=== PATIENT | female | born 1940 | race Caucasian/White ===

== ENCOUNTER 2017-11-30 07:12 | Day surgery (SDC) | payer OTHER, MEDICARE ==
--- OUTSIDE RECORDS SUMMARY | 2017-11-30 07:17 | XMS REPORT | Continuity of Care Document ---
:1940 Author Organization Interface Problems Problem Status Onset Classification Date Comments Source Date Reported Z12.31 - ENCNTR Active 08/25/19 [facility] SCREEN MAMMOGRAM 18 [place] FOR [place] DIABETIC Active 08/16/19 Condition 08/15/2014 Medical RETINOPATHY, 15 Group BACKGROUND Diabetic Resolved 08/16/19 Problem 11/24/2017 Data Medical retinopathy<sup>6 15 migrated Group </sup> from GE [employer] on 12/06/14. 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 Diabetic Active 02/15/20 Problem 11/24/2017 Data Medical peripheral 14 migrated Group neuropathy<sup>4< from GE /sup> Centricity on 10/28/14. Diabetic Resolved 02/15/20 Problem 11/24/2017 Data Medical polyneuropathy<wiggins 14 migrated Group p>5</sup> from GE [employer] on 10/28/14. 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 Tear film Resolved 08/21/19 Problem 11/24/2017 Data Medical insufficiency<sup 13 migrated Group >11</sup> from GE [employer] on 10/28/14. LONG-TERM USE OF Active 01/08/20 Condition 08/15/2014 Medical OTHER MEDICATIONS 12 Group HYPERTENSION, Inactive 01/08/20 Condition 08/15/2014 Medical WHITE COAT 12 Group OBESITY Active 01/08/20 Condition 08/15/2014 Medical 12 Group Long-term drug Resolved 01/08/20 Problem 11/24/2017 Data Medical therapy<sup>9</wiggins 12 migrated Group p> from GE [employer] on 10/28/14. Obesity<sup>10</s Resolved 01/08/20 Problem 11/24/2017 Data Medical up> 12 migrated Group from GE [employer] on 10/28/14. DM Active Condition 08/15/2014 Medical Group HTN Active Condition 08/15/2014 Medical Group HYPERLIPIDEMIA Active Condition 08/15/2014 Medical Group VITAMIN D Active Condition 08/15/2014 Medical DEFICIENCY Group ANEMIA Inactive Condition 08/15/2014 Medical Group DIABETES - DM Inactive Condition 08/15/2014 Medical Group COLON CANCER Active Condition 08/15/2014 Medical Group Benign Active Problem 11/24/2017 Data Medical hypertension<sup> migrated Group 1</sup> from GE [employer] on 10/28/14. Low serum HDL Active Problem 11/24/2017 Medical Group Hyperlipidemia<wiggins Resolved Problem 11/24/2017 Data Medical p>8</sup> migrated Group from GE [employer] on 10/28/14. Mixed Active Problem 11/24/2017 Medical hyperlipidemia Group Vitamin D Resolved Problem 11/24/2017 Data Medical deficiency<sup>12 migrated Group </sup> from GE [employer]ity on 10/28/14. Medications Medication Details Route Status Patient Ordering Order Source Instructions Provider Date simvastatin 40
40 mg=1 Active MH mg oral tablet tab, PO, 018 Medical Bedtime, Group replaces 80 mg, # 90 tab, 1 Refill(s), Pharmacy: [facility] quinapril 40 mg
40 mg=1 Active oral tablet tab, PO, 018 Medical Daily, # 90 Group tab, 1 Refill(s), Pharmacy: [facility] Metoprolol
See Active Succinate ER 50 Instructions 018 Medical mg oral tablet, , TAKE 1 Group extended release TABLET EVERY DAY, # 90 tab, 1 Refill(s), Pharmacy: [facility] Metformin
1,000 Active MH hydrochloride mg=2 tab, 018 Medical 500 MG Oral PO, BID, # Group Tablet 360 tab, 1 Refill(s), Pharmacy: [facility] Furosemide 20 MG
20 mg=1 Active Oral Tablet tab, PO, 018 Medical Daily, # 90 Group tab, 1 Refill(s), Pharmacy: [facility] Delivery doxazosin 8 mg
See Active oral tablet Instructions 018 Medical , TAKE 1 Group TABLET EVERY DAY AT BEDTIME, # 90 tab, 1 Refill(s), Pharmacy: [facility] diclofenac
75 mg=1 Active sodium 75 mg tab, PO, 018 Medical oral enteric BID, 0 Group coated, Refill(s) delayed-release tablet VITAMIN D 2000 1 daily Active UNIT CAPS 014 Medical Group METFORMIN HCL Take 2 Active MH 500 MG TABS tablets by 013 Medical mouth every Group AM & 1 tablet by mouth every PM DOXAZOSIN 1 daily HS Active MH MESYLATE 8 MG 013 Medical TABS Group METFORMIN HCL Take 2 Active MH 500 MG TABS tablets by 013 Medical mouth every Group AM & 1 tablet by mouth every PM DOXAZOSIN 1 daily HS Active MH MESYLATE 8 MG 013 Medical TABS Group METFORMIN HCL Take 2 Active MH 500 MG TABS tablets by 013 Medical mouth every Group AM & 1 tablet by mouth every PM DOXAZOSIN 1 daily HS Active MH MESYLATE 8 MG 013 Medical TABS Group FUROSEMIDE 20 MG 1 daily Active TABS 013 Medical Group MULTIVITAMIN 1 gummie Active MH GUMMIES ADULT daily 013 Medical CHEW Group FISH OIL 1200 MG 1 po daily Active CAPS 013 Medical Group QUINAPRIL HCL 20 1 PO daily Active MH MG TABS 013 Medical Group METOPROLOL 1 PO daily Active MH SUCCINATE 50 MG 013 Medical [id number] Group SIMVASTATIN 80 1 PO daily Active MH MG TABS 013 Medical Group ASPIRIN LOW DOSE 1 PO Daily Active MH 81 MG TABS 013 Medical Group PRESERVISION 2 PO daily Active AREDS CAPS 013 Medical Group RESTASIS 0.05 % use prn Active EMUL 013 Medical Group FUROSEMIDE 20 MG 1 daily Active TABS 013 Medical Group METOPROLOL 1 PO daily Active MH SUCCINATE 50 MG 013 Medical [id number] Group SIMVASTATIN 80 1 PO daily Active MH MG TABS 013 Medical Group RESTASIS 0.05 % use prn Active EMUL 013 Medical Group FUROSEMIDE 20 MG 1 daily Active TABS 013 Medical Group METOPROLOL 1 PO daily Active MH SUCCINATE 50 MG 013 Medical [id number] Group SIMVASTATIN 80 1 PO daily Active MH MG TABS 013 Medical Group MEDROL DOSE PACK use as No Longer 6 DAY dirrected Active 012 Medical Group VITAMIN D3 1000 1 PO daily No Longer MH UNIT TABS Active 012 Medical Group Allergies, Adverse Reactions, Alerts Substance Category Reaction Severity Reaction Status Date Comments Source type Reported CARVEDILOL Drug CARVEDILOL MH allergy Medical Group carvedilol< Assertion Drug Active Data MH sup>1</sup> allergy migrated [facility]. Originally documented as CARVEDILOL. dry mouth Immunizations Immunization Date Site Status Last Comments Source Given Updated influenza virus Right completed [facility] Result Comment: Medical vaccine, 7 Deltoid NO ADVERSE Group inactivated<sup> REACTION 1</sup> pneumococcal Left completed Cain Result Comment: Medical 13-valent 7 Deltoid NO ADVERSE Group vaccine<sup>3</s REACTION up> tetanus-diphther Left completed Cain Result Comment: Medical ia 7 Deltoid NO ADVERSE Group toxoids<sup>4</s REACTION up> influenza completed Medical immunization 3 Group (Flu Vax) has been administered Hx influenza completed GE Result Comment: Medical vaccine-unspecif 3 done. Migrated Group ied<sup>6</sup> from OBS ; Data migrated from [employer] on 07/03/2015.[07/30 Uncharted] Duplicate influenza virus completed GE Result Comment: Medical vaccine, 3 fluzone Group inactivated<sup> preservative 2</sup> free (>3 yrs.) [[id number]]. Migrated from OBS ; Data migrated from [employer] on 07/03/2015. pneumococcal completed Medical immunization 3 Group administered pneumococcal Right completed GE Result Comment: Medical 23-valent 3 Deltoid pneumovax-23. Group vaccine<sup>7</s Migrated from up> OBS VIS: 12-27-96 given August 20, 2012. ; Data migrated from [employer] on 07/03/2015. influenza completed Medical immunization 2 Group (Flu Vax) has been administered influenza completed Medical immunization 1 Group (Flu Vax) has been administered influenza completed Medical immunization 0 Group (Flu Vax) has been administered dT (Diphtheria completed Medical and Tetanus) 4 Group booster given pneumococcal completed Medical immunization 4 Group administered dT (Diphtheria completed Medical and Tetanus) 4 Group immunization for children, #1 tetanus-diphther completed GE Result Comment: Medical ia 4 td. Migrated Group toxoids<sup>5</s from OBS ; up> Data migrated from [employer] on 07/03/2015. Results Order Name Results Value Reference Date Interpretation Comments Source Range Breast Breast Mammo 08/26 - [facility] Mammo Scrn Scrn DEVAN /2018 - [place] DEVAN incl incl CAD MA CAD MA Read by: Emilie White MD Dictated Date/time: 08/31/17 12:38 BILATERAL DIGITAL SCREENING MAMMOGRAM WITH CAD: 08/26/2017 Electronically Signed by: Emilie White MD 08/31/17 12 :38 FINAL REPORT CLINICAL: /Screening. Current study was evaluated with a Computer Aided Detection (CAD) system. COMPARISON:Comparison is made to exam dated: 11/16/2006 mammogram - [facility]. And additional exams from [facility] with the most recent dated 11/28/2014. TECHNIQUE: Mammographic views were obtained using digital acquisition. Current study was also evaluated with a Computer Aided Detection (CAD) system. FINDINGS: The tissue of both breasts is heterogeneously dense, which could obscure detection of small masses. There is a stable benign focal asymmetry in both breasts. There also are stable benign vascular calcifications and calcifications in both breasts. Additionally, there are biopsy clips in the left breast. No significant masses, calcifications, or other findings are seen in either breast. There has been no significant interval change. IMPRESSION: BENIGN RECOMMENDATION:There is no mammographic evidence of malignancy. A 1 year screening mammogram is recommended.(08/27/2018) This exam was interpreted at [id number] for [facility]. Emilie White M.D. sg/penrad:08/31/2017 12:38:41 Clay Thrower(s): Ly Gonzalez, [facility] letter sent: BI-RADS 1/2 Dense Mammogram BI-RADS: 2 Benign Chemistry SODIUM 140 mmol/L 136 - 142 08/15 Medical Group Chemistry POTASSIUM 3.7 mmol/L 3.3 - 5.0 08/15 Medical Group Chemistry BUN 15 mg/dL 8 - 20 08/15 Medical Group Chemistry CREATININE 0.70 mg/dL 0.46 - 08/15 MH 1. Medical Group Chemistry CALCIUM 9.0 mg/dL 8.8 - 10.0 08/15 Medical Group Chemistry CHOLESTEROL 156 mg/dl 120 - 200 08/15 Medical Group Chemistry HDL 48 mg/dl 31 - 79 08/15 Medical Group Chemistry LDL 57 mg/dl 0 - 130 08/15 Medical Group Chemistry SGPT (ALT) 15 U/L 11 - 43 08/15 Medical Group Chemistry SGOT (AST) 16 U/L 10 - 42 08/15 Medical Group Chemistry HGBA1C 6.9 % 3.0 - 6.0 08/15 Medical Group Chemistry SODIUM 143 mmol/L 136 - 142 02/14 Medical Group Chemistry POTASSIUM 4.1 mmol/L 3.3 - 5.0 02/14 Medical Group Chemistry BUN 16 mg/dL 8 - 20 02/14 Medical Group Chemistry CREATININE 0.78 mg/dL 0.46 - 02/14 1. Medical Group Chemistry CALCIUM 9.6 mg/dL 8.8 - 10.0 02/14 Medical Group Chemistry CHOLESTEROL 152 mg/dl 120 - 200 02/14 Medical Group Chemistry HDL 48 mg/dl 31 - 79 02/14 Medical Group Chemistry LDL 65 mg/dl 0 - 130 02/14 Medical Group Chemistry SGPT (ALT) 23 U/L 11 - 43 02/14 Medical Group Chemistry SGOT (AST) 25 U/L 10 - 42 02/14 Medical Group Chemistry MAGNESIUM 2.1 mg/dL 1.9 - 2.5 02/14 Medical Group Chemistry TSH 1.49 0.34 - 02/14 uIU/mL 5.60 Medical Group Chemistry SODIUM 141 mmol/L 136 - 142 08/24 Medical Group Chemistry POTASSIUM 3.7 mmol/L 3.3 - 5.0 08/24 Medical Group Chemistry ALBUMIN 4.1 g/dL 3.5 - 5.0 08/24 Medical Group Chemistry CALCIUM 9.2 mg/dL 8.8 - 10.0 08/24 Medical Group Chemistry CREATININE 0.74 mg/dL 0.46 - 08/24 1. Medical Group Chemistry BUN 12 mg/dL 8 - 08/24 Medical Group Chemistry ALK PHOS 44 U/L 26 - 102 08/24 Medical Group Chemistry SGOT (AST) 21 U/L 10 - 42 08/24 Medical Group Chemistry SGPT (ALT) 22 U/L 11 - 43 08/24 Medical Group Chemistry CHOLESTEROL 152 mg/dl 120 - 200 08/24 Medical Group Chemistry HDL 46 mg/dl 31 - 79 08/24 Medical Group Chemistry HGBA1C 6.4 % 3.0 - 6.0 08/24 Medical Group Hematology HGB 12.3 g/dL 12.0 - 08/24 15.0 Medical Group Hematology HCT 36.1 % 35.0 - 08/24 43.8 /2013 Medical Group Chemistry CHOLESTEROL 166 mg/dl 02/21 Medical Group Chemistry TRIGLYCERIDE 199 mg/dl 02/21 Medical Group Chemistry HDL 53 mg/dl 02/21 Medical Group Chemistry LDL 73 mg/dl 02/21 Medical Group Chemistry TSH 1.41 02/21 uIU/mL Medical Group Chemistry CHOLESTEROL 166 mg/dl 02/21 Medical Group Chemistry TRIGLYCERIDE 199 mg/dl 02/21 Medical Group Chemistry CHOLESTEROL 157 mg/dl 08/20 Medical Group Chemistry TRIGLYCERIDE 207 mg/dl 08/20 Medical Group Chemistry HDL 44 mg/dl 08/20 Medical Group Chemistry LDL 72 mg/dl 08/20 Medical Group Chemistry HGBA1C 7.4 % 08/20 Medical Group Chemistry CHOLESTEROL 157 mg/dl 08/20 Medical Group Chemistry TRIGLYCERIDE 207 mg/dl 08/20 Medical Group Meteorology Professor PAP SMEAR Normal 05/11 Medical Group Meteorology Professor PAP SMEAR Normal 05/11 Medical Group Meteorology Professor PAP SMEAR Normal 05/11 Medical Group Meteorology Professor PAP SMEAR Normal 05/11 Medical Group Chemistry CHOLESTEROL 167 mg/dl 01/07 Medical Group Chemistry TRIGLYCERIDE 271 mg/dl 01/07 Medical Group Chemistry HDL 46 mg/dl 01/07 Medical Group Chemistry LDL 67 mg/dl 01/07 Medical Group Chemistry HGBA1C 6.7 % 01/07 Medical Group Chemistry TSH 1.03 01/07 uIU/mL Medical Group Chemistry CHOLESTEROL 167 mg/dl 01/07 Medical Group Chemistry TRIGLYCERIDE 271 mg/dl 01/07 Medical Group Chemistry HGBA1C 6.1 % 01/07 Medical Group Chemistry HGBA1C 6.1 % 01/07 Medical Group Chemistry CHOLESTEROL 152 mg/dl 07/21 Medical Group Chemistry TRIGLYCERIDE 278 mg/dl 07/21 Medical Group Chemistry HDL 43 mg/dl 07/21 Medical Group Chemistry LDL 53 mg/dl 07/21 Medical Group Chemistry HGBA1C 6.1 % 07/21 Medical Group Chemistry CHOLESTEROL 152 mg/dl 07/21 Medical Group Chemistry TRIGLYCERIDE 278 mg/dl 07/21 Medical Group Chemistry CHOLESTEROL 132 mg/dl 01/10 Medical Group Chemistry TRIGLYCERIDE 148 mg/dl 01/10 Medical Group Chemistry HDL 39 mg/dl 01/10 Medical Group Chemistry LDL 63 mg/dl 01/10 Medical Group Chemistry HGBA1C 5.9 % 01/10 Medical Group Chemistry TSH 0.85 01/10 Medical Group Chemistry CHOLESTEROL 132 mg/dl 01/10 Medical Group Chemistry TRIGLYCERIDE 148 mg/dl 01/10 Medical Group Vital Signs Vital Sign Value Date Comments Source Systolic (mm Hg) 160 11/10/2017 Medical Group Diastolic (mm Hg) 90 11/10/2017 Medical Group Heart Rate 83 11/10/2017 Medical Group Temperature Oral (F) 98.1 F 11/10/2017 Medical Group BMI Calculated 36.19 11/10/2017 Medical Group Weight 84.773 11/10/2017 Medical Group Height 153.04 cm 11/10/2017 Medical Group Systolic (mm Hg) 182 11/10/2017 Medical Group Diastolic (mm Hg) 93 11/10/2017 Medical Group Systolic (mm Hg) 154 08/18/2017 Medical Group Diastolic (mm Hg) 88 08/18/2017 Medical Group Temperature Oral (F) 97.8 F 08/18/2017 Medical Group Weight 84.148 08/18/2017 Medical Group Heart Rate 78 08/18/2017 Medical Group Systolic (mm Hg) 174 08/18/2017 Medical Group Diastolic (mm Hg) 92 08/18/2017 Medical Group Weight 183.4 08/15/2014 Medical Group Temperature Oral (F) 97.6 F 08/15/2014 Medical Group Respitory Rate 16 08/15/2014 Medical Group Heart Rate 101 08/15/2014 Medical Group Systolic (mm Hg) 196 08/15/2014 Medical Group Diastolic (mm Hg) 127 08/15/2014 Medical Group Height 60 02/14/2014 Medical Group Weight 198.8 02/14/2014 Medical Group Temperature Oral (F) 97.5 F 02/14/2014 Medical Group Respitory Rate 20 02/14/2014 Medical Group Heart Rate 68 02/14/2014 Medical Group Systolic (mm Hg) 142 02/14/2014 Medical Group Diastolic (mm Hg) 88 02/14/2014 Medical Group Weight 199.8 08/24/2013 Medical Group Temperature Oral (F) 98.3 F 08/24/2013 Medical Group Heart Rate 60 08/24/2013 Medical Group Systolic (mm Hg) 138 08/24/2013 Medical Group Diastolic (mm Hg) 82 08/24/2013 Medical Group Respitory Rate 16 08/24/2013 Medical Group Weight 198.4 02/21/2013 Medical Group Temperature Oral (F) 97.1 F 02/21/2013 Medical Group Heart Rate 64 02/21/2013 Medical Group Respitory Rate 16 02/21/2013 Medical Group Systolic (mm Hg) 136 02/21/2013 Medical Group Diastolic (mm Hg) 84 02/21/2013 Medical Group Weight 192.6 08/20/2012 Medical Group Temperature Oral (F) 98.1 F 08/20/2012 Medical Group Heart Rate 72 08/20/2012 Medical Group Systolic (mm Hg) 146 08/20/2012 Medical Group Diastolic (mm Hg) 92 08/20/2012 Medical Group Respitory Rate 16 08/20/2012 Medical Group Height 60.5 01/08/2012 Medical Group Weight 192.5 01/08/2012 Medical Group Systolic (mm Hg) 140 01/08/2012 Medical Group Diastolic (mm Hg) 80 01/08/2012 Medical Group Heart Rate 80 01/08/2012 Medical Group Encounters Location Location Encounter Encounter Reason Attending ADM DC Status Source Details Type Number For Provider Date Date Visit [facility] Office [id number] Art 08/24 08/24 [place] Medical Visit [id number], /2013 Yuval Sanford MD [facility] Family [facility] Lab Report [id number] Art 08/24 08/24 [place] [facility] [address], /2013 Yuval Sanford MD [facility] Lab Report [id number] Art 08/24 08/24 [facility] [address], /2013 Medical Yuval GRACIA [facility] Lab Report [id number] Art 02/14 02/14 [place] [facility] [address], /2013 Yuval Sanford MD [facility] Office [id number] Art 08/15 08/15 [place] [facility] Visit [address], /2014 Yuval Sanford MD [facility] Lab Report [id number] Art 08/15 08/15 [place] [facility] [address], /2014 Yuval Sanford MD [facility] Outpatient [id number] ART 02/15 Active [facility] /2014 [place] [facility] [id number] ART 08/20 [facility] [place] [facility] [id number] ART 02/18 [facility] /[facility] [place] [facility] [id number] [facility] [place] [facility] [id number] NORY 02/10 [facility] /2016 [place] [id number] ART 02/17 [facility] /2016 [place] Out[place] [id number] ART 08/18 [facility] /2017 [facility] Outpatient [id number] Nory 08/18 08/19 [facility] [place] /2017 [facility] Outpatient [id number] JERECIA 11/10 [facility] Outpatient [id number] Jerecia 11/10 11/11 [place] /2017 [facility] Outpatient [id number] JERECIA 02/23 [facility] [place] Procedures Procedure Code Date Perfomer Comments Source diabetic foot check [id number] yes Medical 5 Group diabetic foot check [id number] yes Medical 4 Group mammogram 80428 L. [facility] 4 diagnostic Group mammogram - [facility] diabetic foot check [id number] yes Medical 4 Group mammogram 15804 Done Medical 4 Group diabetic foot check [id number] yes Medical 3 Group diabetic foot check [id number] yes Medical 3 Group mammogram 23478 Done Medical 2 Group vaginal Pap smear 05349 Normal Medical results 2 Group bone density 4002.65 Normal Medical 2 Group Laser eye [id number] Bilateral Medical surgery<sup>1</sup> 2 Group mammogram 43910 Done Medical 1 Group colonoscopy 15472 divorticulosis; Medical 1 repeat in 10 Group years mammogram 38343 Done Medical 0 Group bone density 4002.65 Done Medical 4 Group bone density 4002.65 Done Medical 4 Group Arthroscopy of [id number] Left - Medial Medical knee<sup>2</sup> Meniscus Tear Group Biopsy of [id number] Left - Medical breast<sup>3</sup> Stereotactic Group Cholecystectomy [id number] Medical Group
--- OUTSIDE RECORDS SUMMARY | 2017-11-30 07:18 | XMS REPORT | Continuity of Care Document ---
:1940 Author Organization [facility] Care Team Providers Name Role Phone MD Glenn, Art Unavailable Unavailable Insurance Providers Payer name Policy type / Policy ID Covered green party ID Policy [place] Coverage type AARP COB SECONDARY AARP COB SECONDARY MCR MEDICARE PRIMARY MEDIC[place] B[place]: [place]OV[place] AARP HEALTHCARE OPTIONS (MEDICARE SUPPLEMENT MEDICARE B-[place]: [employer] [place] AARP HEALTHCARE OPTIONS (MEDICARE SUPPLEMENT Encounters Encounter Performer Location Date Office Visit Fernandez Elizabeth MD [facility] Jul Practice Allergies, Adverse Reactions, Alerts Type Substance Reaction Status Drug allergy CARVEDILOL dry mouth Active Problems Problem Effective Dates Problem Status DM Active HTN Active HYPERLIPIDEMIA Active VITAMIN D DEFICIENCY Active ANEMIA Inactive LONG-TERM (CURRENT) USE OF OTHER MEDICATIONS Jan 08, 2012 Active HYPERTENSION, WHITE COAT Jan 08, 2012 Inactive FH DIABETES - DM Inactive OBESITY Jan 08, 2012 Active MACULAR DEGENERATION Aug 20, 2012 Active DRY EYE SYNDROME Aug 20, 2012 Active PREVENTIVE HEALTH CARE Aug 20, 2012 Active EDEMA Aug 20, 2012 Active EPICONDYLITIS Aug 20, 2012 Inactive DIABETES MELLITUS, TYPE II, WITH OPHTHALMIC Aug 24, 2013 Active COMPLICATIONS FH COLON CANCER Active Procedures Date Description Comments Mar 07, 2010 mammogram Done Aug 02, 2003 bone density Done Aug 02, 2003 bone density Done Apr 16, 2011 mammogram Done Jan 08, 2012 smoking status never smoker Feb 03, 2011 colonoscopy divorticulosis; repeat in 10 years Aug 20, 2012 diabetic foot check yes May 11, 2012 mammogram Done May 11, 2012 vaginal Pap smear results Normal May 11, 2012 bone density Normal Feb 21, 2013 diabetic foot check yes Jun 15, 2013 mammogram Done Aug 24, 2013 diabetic foot check yes Medications Medication Instructions Start Date Status MEDROL DOSE PACK 6 DAY use as dirrected Dec 15, 2011 Inactive VITAMIN D3 1000 UNIT TABS 1 PO daily Inactive FUROSEMIDE 20 MG TABS 1 daily Aug 20, 2012 Active MULTIVITAMIN GUMMIES ADULT CHEW 1 gummie daily Aug 20, 2012 Active FISH OIL 1200 MG CAPS 1 po daily Aug 20, 2012 Active QUINAPRIL HCL 20 MG TABS 1 PO daily Aug 20, 2012 Active METOPROLOL SUCCINATE 50 MG 1 PO daily Aug 20, 2012 Active [id number] SIMVASTATIN 80 MG TABS 1 PO daily Aug 20, 2012 Active ASPIRIN LOW DOSE 81 MG TABS 1 PO Daily Aug 20, 2012 Active PRESERVISION AREDS CAPS 2 PO daily Aug 20, 2012 Active RESTASIS 0.05 % EMUL use prn Aug 20, 2012 Active METFORMIN HCL 500 MG TABS Take 2 tablets by mouth every Feb 21, 2013 Active AM & 1 tablet by mouth every PM DOXAZOSIN MESYLATE 8 MG TABS 1 daily HS Feb 21, 2013 Active Immunizations Vaccine Date Status pneumococcal immunization administered Nov 28, 2003 completed influenza immunization (Flu Vax) has been administered Feb 21, 2011 completed influenza immunization (Flu Vax) has been administered Feb 12, 2010 completed dT (Diphtheria and Tetanus) booster given Nov 28, 2003 completed influenza immunization (Flu Vax) has been administered Mar 17, 2012 completed pneumococcal immunization administered Aug 20, 2012 completed dT (Diphtheria and Tetanus) immunization for children, #1 Nov 28, 2003 completed influenza immunization (Flu Vax) has been administered Feb 21, 2013 completed Vital Signs Date Description Test Result Jan 08, 2012 height E&M - 8302-2 HEIGHT 60.5 in Jan 08, 2012 weight E&M - 3141-9 WEIGHT 192.5 lb Jan 08, 2012 blood pressure, systolic - 8480-6 BP SYSTOLIC 140 mm Hg Jan 08, 2012 blood pressure, diastolic - 8462-4 BP DIASTOLIC 80 mm Hg Jan 08, 2012 pulse rate E&M - 8867-4 PULSE RATE 80 /min Aug 20, 2012 weight E&M - 3141-9 WEIGHT 192.6 lb Aug 20, 2012 temperature E&M TEMPERATURE 98.1 deg f Aug 20, 2012 pulse rate E&M - 8867-4 PULSE RATE 72 /min Aug 20, 2012 blood pressure, systolic - 8480-6 BP SYSTOLIC 146 mm Hg Aug 20, 2012 blood pressure, diastolic - 8462-4 BP DIASTOLIC 92 mm Hg Aug 20, 2012 respiratory rate E&M - 9279-1 RESP RATE 16 /min Aug 20, 2012 blood pressure, systolic, second observation BP SYS #2 136 mm Hg Aug 20, 2012 blood pressure, diastolic, second observation BP TRACEY #2 88 mm Hg Feb 21, 2013 weight E&M - 3141-9 WEIGHT 198.4 lb Feb 21, 2013 temperature E&M TEMPERATURE 97.1 deg f Feb 21, 2013 pulse rate E&M - 8867-4 PULSE RATE 64 /min Feb 21, 2013 respiratory rate E&M - 9279-1 RESP RATE 16 /min Feb 21, 2013 blood pressure, systolic - 8480-6 BP SYSTOLIC 136 mm Hg Feb 21, 2013 blood pressure, diastolic - 8462-4 BP DIASTOLIC 84 mm Hg Aug 24, 2013 weight E&M - 3141-9 WEIGHT 199.8 lb Aug 24, 2013 temperature E&M TEMPERATURE 98.3 deg f Aug 24, 2013 pulse rate E&M - 8867-4 PULSE RATE 60 /min Aug 24, 2013 blood pressure, systolic - 8480-6 BP SYSTOLIC 138 mm Hg Aug 24, 2013 blood pressure, diastolic - 8462-4 BP DIASTOLIC 82 mm Hg Aug 24, 2013 respiratory rate E&M - 9279-1 RESP RATE 16 /min Results Date Description Test Name Value Reference Interpretation Status Jan 07, hemoglobin A1C, HGBA1C 6.1 % 2011 blood, as % of total hemoglobin Jan 07, cholesterol, CHOLESTEROL 167 mg/dl 2011 serum Jan 07, triglyceride, TRIGLYCERIDE 271 mg/dl 2011 serum, fasting Jan 07, HDL cholesterol, HDL 46 mg/dl 2011 serum Jan 07, LDL cholesterol, LDL 67 mg/dl 2011 serum Jan 07, hemoglobin A1C, HGBA1C 6.7 % 2011 blood, as % of total hemoglobin Jan 07, thyroid TSH 1.03 uIU/mL 2011 stimulating hormone, serum Jul 21, cholesterol, CHOLESTEROL 152 mg/dl 2011 serum Jul 21, triglyceride, TRIGLYCERIDE 278 mg/dl 2011 serum, fasting Jul 21, HDL cholesterol, HDL 43 mg/dl 2011 serum Jul 21, LDL cholesterol, LDL 53 mg/dl 2011 serum Jul 21, hemoglobin A1C, HGBA1C 6.1 % 2011 blood, as % of total hemoglobin Jan 10, cholesterol, CHOLESTEROL 132 mg/dl 2010 serum Jan 10, triglyceride, TRIGLYCERIDE 148 mg/dl 2010 serum, fasting Jan 10, HDL cholesterol, HDL 39 mg/dl 2010 serum Jan 10, LDL cholesterol, LDL 63 mg/dl 2010 serum Jan 10, hemoglobin A1C, HGBA1C 5.9 % 2010 blood, as % of total hemoglobin Jan 10, thyroid TSH 0.85 uIU/mL 2010 stimulating hormone, serum Aug 20, cholesterol, CHOLESTEROL 157 mg/dl 2012 serum Aug 20, triglyceride, TRIGLYCERIDE 207 mg/dl 2012 serum, fasting Aug 20, HDL cholesterol, HDL 44 mg/dl 2012 serum Aug 20, LDL cholesterol, LDL 72 mg/dl 2012 serum Aug 20, hemoglobin A1C, HGBA1C 7.4 % 2012 blood, as % of total hemoglobin Feb 21, cholesterol, CHOLESTEROL 166 mg/dl 2012 serum Feb 21, triglyceride, TRIGLYCERIDE 199 mg/dl 2012 serum, fasting Feb 21, HDL cholesterol, HDL 53 mg/dl 2012 serum Feb 21, LDL cholesterol, LDL 73 mg/dl 2012 serum Feb 21, thyroid TSH 1.41 uIU/mL 2012 stimulating hormone, serum May 11, vaginal Pap smear PAP SMEAR Normal null 2011 results
--- OUTSIDE RECORDS SUMMARY | 2017-11-30 07:18 | XMS REPORT | Continuity of Care Document ---
:1940 Author Organization [facility] Care Team Providers Name Role Phone MD Glenn, Art Unavailable Unavailable Insurance Providers Payer name Policy type / Policy ID Covered libertarian ID Policy [place] Coverage type AARP COB SECONDARY AARP COB SECONDARY MCR MEDICARE PRIMARY MEDICARE B-[place]: [employer] AARP HEALTHCARE OPTIONS (MEDICARE SUPPLEMENT MEDICARE B-[place]: [employer] [place] AARP HEALTHCARE OPTIONS (MEDICARE SUPPLEMENT Encounters Encounter Performer Location Date Lab Report Art MD Glenn [facility] Aug 24, 2013 Practice Allergies, Adverse Reactions, Alerts Type Substance [...] 1 PO daily Aug 20, 2012 Active [id number] SIMVASTATIN 80 MG TABS 1 PO daily [...] 1 daily HS Feb 21, 2013 Active VITAMIN D 2000 UNIT CAPS 1 daily Aug 29, 2013 Active Immunizations Vaccine Date Status pneumococcal [...] Description Test Name Value Reference Interpretation Status Aug 24, hemoglobin, blood HGB 12.3 g/dL 12.0-15.0 2013Aug 24, hematocrit, blood HCT 36.1 % 35.0-43.8 2013Jan 07, hemoglobin A1C, HGBA1C 6.1 % 2011 blood, as % of total hemoglobin Jan 07, cholesterol, serum CHOLESTEROL 167 mg/dl 2011Jan 07, triglyceride, serum, TRIGLYCERIDE 271 mg/dl 2011 fasting Jan 07, HDL cholesterol, HDL 46 mg/dl 2011Jan 07, LDL cholesterol, LDL 67 mg/dl 2011Jan 07, hemoglobin A1C, HGBA1C 6.7 % 2011 blood, as % of total hemoglobin Jan 07, thyroid stimulating TSH 1.03 2011 hormone, serum uIU/mL Jul 21, cholesterol, serum CHOLESTEROL 152 mg/dl 2011Jul 21, triglyceride, serum, TRIGLYCERIDE 278 mg/dl 2011 fasting Jul 21, HDL cholesterol, HDL 43 mg/dl 2011 serum Jul 21, LDL cholesterol, LDL 53 mg/dl 2011 serum Jul 21, hemoglobin A1C, HGBA1C 6.1 % 2011 blood, as % of total hemoglobin Jan 10, cholesterol, serum CHOLESTEROL 132 mg/dl 2010Jan 10, triglyceride, serum, TRIGLYCERIDE 148 mg/dl 2010 fasting Jan 10, HDL cholesterol, HDL 39 mg/dl 2010Jan 10, LDL cholesterol, LDL 63 mg/dl 2010Jan 10, hemoglobin A1C, HGBA1C 5.9 % 2010 blood, as % of total hemoglobin Jan 10, thyroid stimulating TSH 0.85 2010 hormone, serum uIU/mL Aug 20, cholesterol, serum CHOLESTEROL 157 mg/dl 2012Aug 20, triglyceride, serum, TRIGLYCERIDE 207 mg/dl 2012 fasting Aug 20, HDL cholesterol, HDL 44 mg/dl 2012Aug 20, LDL cholesterol, LDL 72 mg/dl 2012 serum Aug 20, hemoglobin A1C, HGBA1C 7.4 % 2012 blood, as % of total hemoglobin Feb 21, cholesterol, serum CHOLESTEROL 166 mg/dl 2012Feb 21, triglyceride, serum, TRIGLYCERIDE 199 mg/dl 2012 fasting Feb 21, HDL cholesterol, HDL 53 mg/dl 2012 serum Feb 21, LDL cholesterol, LDL 73 mg/dl 2012 serum Feb 21, thyroid stimulating TSH 1.41 2012 hormone, serum uIU/mL Aug 24, sodium, serum SODIUM 141 mmol/L [phone] Aug 24, potassium, serum POTASSIUM 3.7 mmol/L 3.3-5.0 2013Aug 24, albumin, serum ALBUMIN 4.1 g/dL 3.5-5.0 2013Aug 24, calcium, serum CALCIUM 9.2 mg/dL 8.8-10.0 2013Aug 24, creatinine, serum CREATININE 0.74 mg/dL 0.46-1.20 2013Aug 24, urea nitrogen, blood BUN 12 mg/dL 8-20 2013Aug 24, alkaline phosphatase, ALK PHOS 44 U/L 26-102 2013Aug 24, aspartate SGOT (AST) 21 U/L 10-42 2013 aminotransferase (SGOT), serum Aug 24, alanine SGPT (ALT) 22 U/L 11-43 2013 aminotransferase (SGPT), serum Aug 24, cholesterol, serum CHOLESTEROL 152 mg/dl [phone] Aug 24, HDL cholesterol, HDL 46 mg/dl 31-79 2013Aug 24, hemoglobin A1C, HGBA1C 6.4 % 3.0-6.0 High 2014 blood, as % of total hemoglobin May 11, vaginal Pap smear PAP SMEAR Normal 2011 results null
--- OUTSIDE RECORDS SUMMARY | 2017-11-30 07:18 | XMS REPORT | Continuity of Care Document ---
:1940 Author Organization [facility] Care Team Providers Name Role Phone MD Glenn, Art Unavailable Unavailable Insurance Providers Payer name Policy type / Policy ID Covered alliance party ID Policy [place] Coverage type AARP COB SECONDARY AARP COB SECONDARY MCR MEDICARE PRIMARY MEDICARE B[place]: NOVITAS [employer] AARP HEALTHCARE OPTIONS (MEDICARE SUPPLEMENT MEDICARE B-[place]: [id number] [place] AARP HEALTHCARE OPTIONS (MEDICARE SUPPLEMENT Encounters Encounter Performer Location Date Lab Report Art MD Glenn [facility] Aug 15, 2014 Practice Allergies, Adverse Reactions, Alerts Type Substance Reaction Status Drug allergy CARVEDILOL dry mouth Active Problems Problem Effective Dates Problem Status DM Active HTN Active HYPERLIPIDEMIA Active VITAMIN D DEFICIENCY Active ANEMIA Inactive LONG-TERM (CURRENT) USE OF OTHER MEDICATIONS Jan 08, 2012 Active HYPERTENSION, WHITE COAT Jan 08, 2012 Inactive FH DIABETES - DM Inactive OBESITY Jan 08, 2012 Active SENILE NUCLEAR SCLEROSIS Aug 20, 2012 Active DRY EYE SYNDROME Aug 20, 2012 Active PREVENTIVE HEALTH CARE Aug 20, 2012 Active EDEMA Aug 20, 2012 Active EPICONDYLITIS Aug 20, 2012 Inactive DIABETES MELLITUS, TYPE II, WITH OPHTHALMIC Aug 24, 2013 Active COMPLICATIONS FH COLON CANCER Active BODY MASS INDEX 38.0-38.9, ADULT Feb 14, 2014 Active POLYNEUROPATHY IN DIABETES Feb 14, 2014 Active DIABETIC PERIPHERAL NEUROPATHY Feb 14, 2014 Active DIABETIC RETINOPATHY, BACKGROUND Aug 15, 2014 Active Procedures Date Description Comments Mar 07, [...] Aug 24, 2013 diabetic foot check yes Jan 10, 2014 mammogram L. Digital diagnostic mammogram - [facility] on [facility] Feb 14, 2014 smoking status Never smoker Feb 14, 2014 diabetic foot check yes Aug 15, 2014 smoking status Never smoker Aug 15, 2014 diabetic foot check yes Medications Medication Instructions [...] 1 PO daily Aug 20, 2012 Active [id number] SIMVASTATIN 80 MG TABS 1 PO daily [...] - 9279-1 RESP RATE 16 /min Feb 14, 2014 height E&M - 8302-2 HEIGHT 60 in Feb 14, 2014 weight E&M - 3141-9 WEIGHT 198.8 lb Feb 14, 2014 temperature E&M TEMPERATURE 97.5 deg f Feb 14, 2014 respiratory rate E&M - 9279-1 RESP RATE 20 /min Feb 14, 2014 pulse rate E&M - 8867-4 PULSE RATE 68 /min Feb 14, 2014 blood pressure, systolic - 8480-6 BP SYSTOLIC 142 mm Hg Feb 14, 2014 blood pressure, diastolic - 8462-4 BP DIASTOLIC 88 mm Hg Aug 15, 2014 weight E&M - 3141-9 WEIGHT 183.4 lb Aug 15, 2014 temperature E&M TEMPERATURE 97.6 deg f Aug 15, 2014 respiratory rate E&M - 9279-1 RESP RATE 16 /min Aug 15, 2014 pulse rate E&M - 8867-4 PULSE RATE 101 /min Aug 15, 2014 blood pressure, systolic - 8480-6 BP SYSTOLIC 196 mm Hg Aug 15, 2014 blood pressure, diastolic - 8462-4 BP DIASTOLIC 127 mm Hg Aug 15, 2014 blood pressure, systolic, second observation BP SYS #2 150 mm Hg Aug 15, 2014 blood pressure, diastolic, second observation BP TRACEY #2 86 mm Hg Results Date Description Test Name Value Reference [...] Jan 07, LDL cholesterol, LDL 67 mg/dl 2011Jan [...] 2010Jan 10, LDL cholesterol, LDL 63 mg/dl 2010 [...] serum Feb 21, thyroid stimulating TSH 1.41 2013 hormone, serum uIU/mL Aug 24, sodium, serum SODIUM 141 mmol/L [phone] Aug 24, potassium, serum POTASSIUM 3.7 mmol/L 3.3-5.0 2013Aug 24, albumin, serum ALBUMIN 4.1 g/dL 3.5-5.0 2013Aug 24, calcium, serum CALCIUM 9.2 mg/dL 8.8-10.0 2013Aug 24, creatinine, serum CREATININE 0.74 mg/dL 0.46-1.20 2013Aug 24, urea nitrogen, blood BUN 12 mg/dL 8-2013Aug 24, alkaline phosphatase, ALK PHOS 44 U/L -2013Aug 24, aspartate SGOT (AST) 21 U/L 2013 aminotransferase (SGOT), serum Aug 24, alanine SGPT (ALT) 22 U/L 2013 aminotransferase (SGPT), serum Aug 24, cholesterol, serum CHOLESTEROL 152 mg/dl [phone] Aug 24, HDL cholesterol, HDL 46 mg/dl 31-79 2013Aug 24, hemoglobin A1C, HGBA1C 6.4 % 3.0-6.0 High 2013 blood, as % of total hemoglobin Feb 14, sodium, serum SODIUM 143 mmol/L 136-142 High 2013Feb 14, potassium, serum POTASSIUM 4.1 mmol/L 3.3-5.0 2013Feb 14, urea nitrogen, blood BUN 16 mg/dL 8-20 2013Feb 14, creatinine, serum CREATININE 0.78 mg/dL 0.46-1.20 2013Feb 14, calcium, serum CALCIUM 9.6 mg/dL 8.8-10.0 2013Feb 14, cholesterol, serum CHOLESTEROL 152 mg/dl [phone] Feb 14, HDL cholesterol, HDL 48 mg/dl 31-79 2013Feb 14, LDL cholesterol, LDL 65 mg/dl 0-130 2013Feb 14, alanine SGPT (ALT) 23 U/L 2013 aminotransferase (SGPT), serum Feb 14, aspartate SGOT (AST) 25 U/L 2013 aminotransferase (SGOT), serum Feb 14, magnesium, serum MAGNESIUM 2.1 mg/dL 1.9-2.5 2013Feb 14, thyroid stimulating TSH 1.49 0.34-5.60 2014 hormone, serum uIU/mL Aug 15, sodium, serum SODIUM 140 mmol/L [phone] Aug 15, potassium, serum POTASSIUM 3.7 mmol/L 3.3-5.0 2014Aug 15, urea nitrogen, blood BUN 15 mg/dL 8-20 2014Aug 15, creatinine, serum CREATININE 0.70 mg/dL 0.46-1.20 2014Aug 15, calcium, serum CALCIUM 9.0 mg/dL 8.8-10.0 2014Aug 15, cholesterol, serum CHOLESTEROL 156 mg/dl [phone] Aug 15, HDL cholesterol, HDL 48 mg/dl 31-79 2014Aug 15, LDL cholesterol, LDL 57 mg/dl 0-130 2014Aug 15, alanine SGPT (ALT) 15 U/L 11-43 2014 aminotransferase (SGPT), serum Aug 15, aspartate SGOT (AST) 16 U/L 10-42 2014 aminotransferase (SGOT), serum Aug 15, hemoglobin A1C, HGBA1C 6.9 % 3.0-6.0 High 2015 blood, as % of total hemoglobin May 11, vaginal Pap smear PAP SMEAR Normal 2011 results null
--- OUTSIDE RECORDS SUMMARY | 2017-11-30 07:18 | XMS REPORT | Continuity of Care Document ---
:[address] [facility] Care Team Providers Name Role Phone MD Glenn, Art Unavailable Unavailable Insurance Providers Payer name Policy type / Policy ID Covered alliance party ID Policy [place] Coverage type AARP COB SECONDARY AARP COB SECONDARY MCR MEDICARE PRIMARY MEDICARE [place]: NOVITAS [employer] AARP HEALTHCARE OPTIONS (MEDICARE SUPPLEMENT MEDICARE B-[place]: [email or web address] AARP HEALTHCARE OPTIONS (MEDICARE SUPPLEMENT Encounters Encounter Performer Location Date Lab Report Art MD Glenn [facility] [place] Feb 14, 2014 Practice Allergies, Adverse Reactions, Alerts Type [...] DIABETIC PERIPHERAL NEUROPATHY Feb 14, 2014 Active Procedures Date Description Comments Mar [...] 2014 mammogram L. Digital diagnostic mammogram - [facility] Feb 14, 2014 smoking status Never smoker Feb 14, 2014 diabetic foot check yes Medications Medication [...] 1 PO daily Aug 20, 2012 Active [id number] SIMVASTATIN 80 MG TABS 1 PO daily [...] - 8462-4 BP DIASTOLIC 88 mm Hg Results Date Description Test Name [...] Aug 24, sodium, serum SODIUM 141 mmol/L [phone] Aug 24, potassium, serum POTASSIUM 3.7 mmol/L 3.3-5.0 2013Aug 24, albumin, serum ALBUMIN 4.1 g/dL 3.5-5.0 2013Aug 24, calcium, serum CALCIUM 9.2 mg/dL 8.8-10.0 2013Aug 24, creatinine, serum CREATININE 0.74 mg/dL 0.46-1.20 2013Aug 24, urea nitrogen, blood BUN 12 mg/dL 8-20 2013Aug 24, alkaline phosphatase, ALK PHOS 44 U/L 26-102 2013 serum Aug 24, aspartate SGOT (AST) 21 U/L 2013 aminotransferase (SGOT), serum Aug 24, alanine SGPT (ALT) 22 U/L 2013 aminotransferase (SGPT), serum Aug 24, cholesterol, serum CHOLESTEROL 152 mg/dl [phone] Aug 24, HDL cholesterol, HDL 46 mg/dl [...] 2013Feb 14, cholesterol, serum CHOLESTEROL 152 mg/dl [phone] Feb 14, HDL cholesterol, HDL 48 mg/dl -2013Feb 14, LDL cholesterol, LDL 65 mg/dl 0-130 2013Feb 14, alanine SGPT (ALT) 23 U/L 2013 aminotransferase (SGPT), serum Feb 14, aspartate SGOT (AST) 25 U/L 2013 aminotransferase (SGOT), serum Feb 14, magnesium, serum MAGNESIUM 2.1 mg/dL 1.9-2.5 2013Feb 14, thyroid stimulating TSH 1.49 0.34-5.60 2013 hormone, serum uIU/mL May 11, vaginal Pap smear PAP SMEAR Normal 2011 results null
--- OUTSIDE RECORDS SUMMARY | 2017-11-30 07:18 | XMS REPORT | Continuity of Care Document ---
:1940 Author Organization [facility] Care Team Providers Name Role Phone MD Glenn, Art Unavailable Unavailable Insurance Providers Payer name Policy type / Policy ID Covered alliance party ID Policy [place] Coverage type AARP COB SECONDARY AARP COB SECONDARY MCR MEDICARE PRIMARY MEDICARE [place]: NOVITAS [employer] AARP HEALTHCARE OPTIONS (MEDICARE SUPPLEMENT MEDICARE [place]: [employer] AARP HEALTHCARE OPTIONS (MEDICARE SUPPLEMENT Encounters Encounter Performer Location Date Lab Report Art MD Glenn [facility] Aug 24, 2013 Allergies, Adverse Reactions, Alerts Type Substance Reaction [...] 1 PO daily Aug 20, 2012 Active [id number] SIMVASTATIN 80 MG TABS 1 PO daily [...]
--- OUTSIDE RECORDS SUMMARY | 2017-11-30 07:19 | XMS REPORT | Summary of Care ---
:1940 Author Organization [facility] Address [address] [place] [phone] Encounter HQ Katherine_tosha(FIN) [id number] Date(s): 08/18/17 - 08/18/[address] [address]- [phone] Discharge Disposition: Home or Self Care Attending Physician: Noa Roberts MSN, RN, [employer] BPM ARCHITECT-C Vital Signs Most recent to oldest [Reference Range]: 1 2 Temperature Oral [96.4-99.1 DegF] 97.8 DegF (08/18/17 8:54 AM) Blood Pressure [90-140/60-90 mmHg] 154/88 mmHg 174/92 mmHg *HI* *HI* (08/18/17 9:21 AM) (08/18/17 8:54 AM) Peripheral Pulse Rate [60-100 bpm] 78 bpm (08/18/17 8:54 AM) Weight 84.148 kg (08/18/17 8:54 AM) Problem List Condition Effective Dates Status Health Status Informant Benign hypertension(Confirmed)1 Active Body mass index 30+ - obesity2 02/14/14 Resolved Low serum HDL(Confirmed) Active 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 mellitus(Confirmed)3 Diabetic peripheral 02/14/14 Active neuropathy(Confirmed)4 Diabetic polyneuropathy5 02/14/14 Resolved Diabetic retinopathy6 08/15/14 Resolved Edema7 08/20/12 Resolved Hyperlipidemia(Confirmed)8 Resolved Long-term drug therapy9 01/08/12 Resolved Mixed hyperlipidemia(Confirmed) Active Offplmo53 01/08/12 Resolved Tear film [id number] 08/20/12 Resolved Vitamin D deficiency(Confirmed)12 Resolved 1Data migrated from [employer] on 10/28/14.2Data migrated from [employer] on 10/28/14.3Data migrated from [employer] on 10/28/14.4Data migrated from [employer] on 10/28/14.5Data migrated from [employer] on 10/28/14.6Data migrated from [employer] on 12/06/14.7Data migrated from [employer] on .8Data migrated from [employer] on 10/28/14.9Data migrated from [employer] on 10/28/14.10Data migrated from [employer] on 10/28/14.11Data migrated from [employer] on 10/28/14.12Data migrated from [employer] on . Allergies, Adverse Reactions, Alerts Substance Reaction Severity Status carvedilol1 Active 1Data migrated from [employer] on 09/29/14. Originally documented as CARVEDILOL. dry mouth Medications diclofenac sodium 75 mg oral enteric coated, delayed-release tablet 75 mg=1 tab, PO, BID, 0 Refill(s) Start Date: 08/18/17 Status: Ordereddoxazosin 8 mg oral tablet See Instructions, TAKE 1 TABLET EVERY DAY AT BEDTIME, # 90 tab, 1 Refill(s), Pharmacy: [facility] Start Date: 08/18/17 Status: Orderedfurosemide 20 mg oral tablet 20 mg=1 tab, PO, Daily, # 90 tab, 1 Refill(s), Pharmacy: [facility] Start Date: 08/18/17 Stop Date: 02/14/18 Status: OrderedmetFORMIN 500 mg oral tablet 1,000 mg=2 tab, PO, BID, # 360 tab, 1 Refill(s), Pharmacy: [facility] Start Date: 08/18/17 Stop Date: 02/14/18 Status: OrderedMetoprolol Succinate ER 50 mg oral tablet, extended release See Instructions, TAKE 1 TABLET EVERY DAY, # 90 tab, 1 Refill(s), Pharmacy: [facility] Start Date: 08/18/17 Status: Orderedquinapril 40 mg oral tablet 40 mg=1 tab, PO, Daily, # 90 tab, 1 Refill(s), Pharmacy: [facility] Start Date: 08/18/17 Stop Date: 02/14/18 Status: Orderedsimvastatin 40 mg oral tablet 40 mg=1 tab, PO, Bedtime, replaces 80 mg, # 90 tab, 1 Refill(s), Pharmacy: [facility] Start Date: 08/18/17 Status: Ordered Results No data available for this section Immunizations Given and Recorded Vaccine Date Status Refusal Reason influenza virus vaccine, inactivated1 02/17/17 Given influenza virus vaccine, inactivated2 02/21/13 Given pneumococcal 13-valent vaccine3 02/17/17 Given tetanus-diphtheria toxoids4 02/17/17 Given tetanus-diphtheria toxoids5 11/28/03 Given Hx influenza vaccine-unspecified6 02/21/13 Given pneumococcal 23-valent vaccine7 08/20/12 Given 1Result Comment: NO ADVERSE [id number] Comment: fluzone preservative free ( >3 yrs.) [[id number]]. Migrated from OBS ; Data migratedfrom [employer] on 07/03/2015.3Result Comment: NO ADVERSE [id number] Comment: NO ADVERSE [id number] Comment: td. Migrated from OBS ; Data migrated from [employer] on 07/03/2015.6Result Comment: done. Migrated from OBS ; Data migrated from [employer] on 07/03/2015.[08/15/2015 Uncharted] [id number] Comment: pneumovax-23. Migrated from OBS VIS: 7--97 given August 20, 2012. ; Data migrated from [employer] on 07/03/2015. Procedures Procedure Date Related Diagnosis Body Site Status Laser eye surgery1 09/2011 Completed Arthroscopy of knee2 Completed Biopsy of breast3 Completed Cholecystectomy Completed [id number] - Medial Meniscus Iqfo9Lamm - Stereotactic Social History Social History Type Response Smoking Status Never smoker; Exposure to Tobacco Smoke None; Cigarette Smoking Last 365 Days No; Reg Smoking Cessation Counseling No entered on: 11/10/17 Assessment and Plan No data available for this section
--- OUTSIDE RECORDS SUMMARY | 2017-11-30 07:19 | XMS REPORT | Summary of Care ---
:1940 Author Organization [facility] Address [address] [place] [address]- Encounter HQ Sandyr_tosha(FIN) [id number] Date(s): 08/18/17 - 08/18/[address] [address]- [phone] Discharge Disposition: Home or Self Care Attending Physician: Noa Roberts MSN, RN, [employer] WORK[employer]-C Vital Signs Most recent to oldest [Reference [...] drug therapy9 01/08/12 Resolved Mixed hyperlipidemia(Confirmed) Active Ofkkhze39 01/08/12 Resolved Tear film [id number] 08/20/12 Resolved Vitamin D deficiency(Confirmed)12 Resolved 1Data migrated from [employer] on 10/28/14.2Data migrated from [employer] on [...] BEDTIME, # 90 tab, 1 Refill(s), Pharmacy: [facility] Start Date: 08/18/17 Status: Orderedfurosemide 20 mg oral tablet 20 mg=1 tab, PO, Daily, # 90 tab, 1 Refill(s), Pharmacy: [facility] Start Date: 08/18/17 Stop Date: 02/14/18 Status: OrderedmetFORMIN 500 mg oral tablet 1,000 mg=2 tab, PO, BID, # 360 tab, 1 Refill(s), Pharmacy: [facility] Start Date: 08/18/17 Stop Date: 02/14/18 Status: OrderedMetoprolol Succinate ER 50 mg oral tablet, extended release See Instructions, TAKE 1 TABLET EVERY DAY, # 90 tab, 1 Refill(s), Pharmacy: [facility] Start Date: 08/18/17 Status: Orderedquinapril 40 mg oral tablet 40 mg=1 tab, PO, Daily, # 90 tab, 1 Refill(s), Pharmacy: [facility] Start Date: 08/18/17 Stop Date: 02/14/18 Status: Orderedsimvastatin 40 mg oral tablet 40 mg=1 tab, PO, Bedtime, replaces 80 mg, # 90 tab, 1 Refill(s), [facility] Start Date: 08/18/17 Status: Ordered Results No data available for this section Immunizations Given and Recorded Vaccine Date Status Refusal Reason influenza virus vaccine, inactivated1 02/17/17 Given influenza virus vaccine, inactivated2 02/21/13 Given pneumococcal 13-valent vaccine3 02/17/17 Given tetanus-diphtheria toxoids4 02/17/17 Given tetanus-diphtheria toxoids5 11/28/03 Given Hx influenza vaccine-unspecified6 02/21/13 Given pneumococcal 23-valent vaccine7 08/20/12 Given 1Result Comment: NO ADVERSE [id number] Comment: fluzone preservative free ( >3 yrs.) [[id number]]. Migrated from OBS ; Data migratedfrom [employer] on 07/03/2015.3Result Comment: NO ADVERSE [id number] Comment: NO ADVERSE [id number] Comment: td. Migrated from OBS ; Data migrated from [employer] on 07/03/2015.6Result Comment: done. Migrated from OBS ; Data migrated from [employer] on 07/03/2015.[08/15/2015 Uncharted] [id number] Comment: pneumovax-23. Migrated from OBS VIS: 7 given August 20, 2012. ; Data migrated from [employer] on 07/03/2015. Procedures Procedure Date Related Diagnosis Body Site Status Laser eye surgery1 09/2011 Completed Arthroscopy of knee2 Completed Biopsy of breast3 Completed Cholecystectomy Completed [id number] - Medial Meniscus Uzik3Fwlk - Stereotactic Social History Social History Type Response Smoking Status Never smoker; Exposure to Tobacco Smoke None; Cigarette Smoking Last 365 Days No; Reg Smoking Cessation Counseling No entered on: 08/18/17 Assessment and Plan No data available for this section
--- OUTSIDE RECORDS SUMMARY | 2017-11-30 07:19 | XMS REPORT | Continuity of Care Document ---
:1940 Author Organization [facility] Care Team Providers Name Role Phone MD Glenn, Art Unavailable Unavailable Insurance Providers Payer name Policy type / Policy ID Covered republican ID Policy [place] Coverage type AARP COB SECONDARY AARP COB SECONDARY MCR MEDICARE PRIMARY MEDIC[place] [employer] AARP HEALTHCARE OPTIONS (MEDICARE SUPPLEMENT MEDIC[place]: [employer] AARP HEALTHCARE OPTIONS (MEDICARE SUPPLEMENT Encounters Encounter Performer Location Date Office Visit Fernandez Elizabeth MD [facility] Jul Practice Allergies, Adverse Reactions, Alerts Type [...] 2014 mammogram L. Digital diagnostic mammogram - [email or web address] Feb 14, 2014 smoking status [...] 1 PO daily Aug 20, 2012 Active [id number] SIMVASTATIN 80 MG TABS 1 PO daily [...] Aug 24, sodium, serum SODIUM 141 mmol/L [phone] Aug 24, potassium, serum POTASSIUM 3.7 mmol/L [...] Aug 24, cholesterol, serum CHOLESTEROL 152 mg/dl [phone] Aug 24, HDL cholesterol, HDL 46 mg/dl [...] 2013Feb 14, cholesterol, serum CHOLESTEROL 152 mg/dl [phone] Feb 14, HDL cholesterol, HDL 48 mg/dl [...] Aug 15, sodium, serum SODIUM 140 mmol/L [phone] Aug 15, potassium, serum POTASSIUM 3.7 mmol/L 3.3-5.0 2014Aug 15, urea nitrogen, blood BUN 15 mg/dL 8-20 2014Aug 15, creatinine, serum CREATININE 0.70 mg/dL 0.46-1.20 2014Aug 15, calcium, serum CALCIUM 9.0 mg/dL 8.8-10.0 2014Aug 15, cholesterol, serum CHOLESTEROL 156 mg/dl [phone] Aug 15, HDL cholesterol, HDL 48 mg/dl [...]
--- OUTSIDE RECORDS SUMMARY | 2017-11-30 07:19 | XMS REPORT | Summary of Care ---
:1940 Author Organization [facility] Address [address] [place] [address]- Encounter HQ Jennifer(FIN) [id number] Date(s): 11/10/17 - 11/10/[address] [address]- [phone] Discharge Disposition: Home or Self Care Attending Physician: William Ely MD Vital Signs Most recent to oldest [Reference Range]: 1 2 Height 153.04 cm (11/10/17 9:34 AM) Temperature Oral [96.4-99.1 DegF] 98.1 DegF (11/10/17 9:34 AM) Blood Pressure [90-140/60-90 mmHg] 160/90 mmHg 182/93 mmHg *HI* *HI* (11/10/17 10:06 AM) (11/10/17 9:34 AM) Peripheral Pulse Rate [60-100 bpm] 83 bpm (11/10/17 9:34 AM) Weight 84.773 kg (11/10/17 9:34 AM) Body Mass Index 36.19 m2 (11/10/17 9:34 AM) Problem List Condition Effective Dates Status Health Status Informant Benign hypertension(Confirmed)1 Active Body mass index 30+ - obesity2 02/14/14 Resolved Low 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 dry mouth Medications No Known Medications Results No data available for this section Immunizations Given and Recorded Vaccine Date Status Refusal Reason influenza virus vaccine, inactivated1 02/17/17 Given influenza virus vaccine, inactivated2 02/21/13 Given pneumococcal 13-valent vaccine3 02/17/17 Given tetanus-diphtheria toxoids4 02/17/17 Given tetanus-diphtheria toxoids5 11/28/03 Given Hx influenza vaccine-unspecified6 02/21/13 Given pneumococcal 23-valent vaccine7 08/20/12 Given 1Result Comment: NO ADVERSE [id number] Comment: fluzone preservative free ( >3 yrs.) [[id number]]. Migrated from OBS ; Data migratedfrom [employer] on 07/03/2015.3Result Comment: NO ADVERSE [id number] Comment: NO ADVERSE [id number] Comment: td. Migrated from OBS ; Data migrated from [employer] on 07/03/2015.6Result Comment: done. Migrated from OBS ; Data migrated from [employer] on 07/03/2015.[08/15/2015 Uncharted] [id number] Comment: pneumovax-23. Migrated from OBS VIS: 7-29-97 given August 20, 2012. ; Data migrated from [employer] on 07/03/2015. Procedures Procedure Date Related Diagnosis Body Site Status Laser eye surgery1 09/2011 Completed Arthroscopy of knee2 Completed Biopsy of breast3 Completed Cholecystectomy Completed 9Kdtnrkvaz9Josk - Medial Meniscus Iwmk6Bwjp - Stereotactic Social History Social History Type Response Smoking Status Never smoker; Exposure to Tobacco Smoke None; Cigarette Smoking Last 365 Days No; Reg Smoking Cessation Counseling No entered on: 11/10/17 Assessment and Plan No data available for this section
[2017-11-30] MEDS ORDERED: LIDOCAINE 2% MPF 5 ML VIAL ONE ×2 (07:37→08:51)
[2017-11-30] MEDS ORDERED: TETRACAINE HCL 0.5% 2ML OPTH ONE (07:37)
[2017-11-30] MEDS ORDERED: CYCLOPENTOLATE 1% OPTH 2 ML ONE (07:37)
[2017-11-30] MEDS ORDERED: NA CHLORIDE 0.9% 500 ML ONE (07:38)
[2017-11-30] MEDS ORDERED: BUPIVACAINE 0.25% PF 30 ML VIAL ONE (07:38)
[2017-11-30] MEDS ORDERED: PHENYLEPHRINE 10% OPTH 5ML ONE (07:38)
[2017-11-30] MEDS ORDERED: CYCLOPENTOLATE 1% OPTH 2 ML OPTH ONE ×2 (08:05→08:10)
[2017-11-30] MEDS ORDERED: PHENYLEPHRINE 10% OPTH 5ML OPTH ONE ×2 (08:05→08:10)
[2017-11-30] MEDS ORDERED: MOXIFLOXACIN HCL 10 DROPS/ML **OR USE OPTH ONE (08:07)
[2017-11-30] MEDS ORDERED: EPINEPHRINE/PF 1 MG/ML AMP ONE (08:07)
[2017-11-30] MEDS ORDERED: BALANCED SALT IRRIG PLAIN 500 ML BTL IRR ONE (08:07)
[2017-11-30] MEDS ORDERED: NS 0.9% VIAL 10 ML ONE (08:07)
[2017-11-30] MEDS ORDERED: DUOVISC 1 KIT OPTH ONE (08:07)
[2017-11-30] MEDS ORDERED: PROPOFOL 200 MG/20 ML VIAL IV ONE (08:51)
--- NOTE | 2017-11-30 09:49 | P.BOP ---
Preoperative diagnosis: Nuclear sclerotic and cortical cataract OS Postoperative diagnosis: Same Primary procedure: Phacoemulsification with IOL OS Estimated blood loss: None Anesthesia: Local (Subtenon's infusion with anesthesia for cataract surgery) Implants: ZCB00 +22.5 Transferred to: Other (Day surgery) Condition: Good
--- NOTE | 2017-11-30 19:48 | OP ---
Date of Procedure: 11/30/2017 Surgeon: Michelle Carrillo MD Anesthesiologist: 1. Dorothy Chavez CRNA. 2. Nitesh Ocampo M.D. Preoperative Diagnosis: Nuclear sclerotic cataract and cortical cataract OS (left eye). Operation Performed: Phacoemulsification with intraocular lens implant, left eye. Anesthesia: Per cataract surgery. Complications: Description Of Procedure: In day surgery, the patient was prepped with Betadine and draped. A conju nctival incision was made in the inferior nasal quadrant with Chao scissors. A sub-Tenon block c onsisting of a 1:1 mixture of 2% Xylocaine and 0.25% bupivacaine was placed through the conjunctival incision with a blunt cannula. A Honan balloon was placed over the eye and the patient was transferr ed to the operating room. In the operating room the patient was prepped and draped in the usual sterile fashion for ophthalmic surgery. A lid speculum was placed in the left eye. Two paracentesis sites were made superiorly and inferiorly in the limbal cornea. Viscoat was placed in the anterior chamber and a crescent blade wa s used to make a corneal groove and tunnel, and a keratome was used to enter the anterior chamber. P rovisc was placed in the anterior chamber and a 360 degree capsulotomy was performed with a cystitome . The lens was hydrodissected with BSS and rotated freely. The lens was removed with a stop and cho p technique. A 6.44 phaco CDE was used to remove the lens. Residual cortex was removed with the irr igation and aspiration. Provisc was placed in the capsular bag. A ZCB00+ 22.5 lens was placed in th e capsular bag without complications. Irrigation and aspiration were used to remove residual viscoel astic. The paracentesis sites were hydrated with BSS. The wound and paracentesis sites were inspect ed and found to be watertight. Vigamox 0.07 cc was placed intracamerally at the end of the procedure . The eye was irrigated with balanced salt solution. The eye was patched with a soft cotton patch a nd Johnson metal shield. The patient was returned to day surgery in good condition. Comments: Discharge Instructions: Ms. Tay is discharged to home in good condition and is to follow up with Dr Kathie Carrillo in the morning. LAF/CUCO Voice ID: [id number] Report ID: [id number]
== END 2017-11-30 10:30 | disposition home or self-care (01) ==
LOC: OR 07:12
PROVIDERS: ATTEND Ophthalmology Retina Specialist
PROC: 08RK3JZ Replacement of Left Lens with Synthetic Substitute, Percutaneous Approach (ICD-10-PCS; principal; 2017-11-30 09:00)
DX: H25.12 Age-related nuclear cataract, left eye (principal); H25.012 Cortical age-related cataract, left eye; H04.123 Dry eye syndrome of bilateral lacrimal glands; H35.3130 Nonexudative age-related macular degeneration, bilateral, stage unspecified; E11.9 Type 2 diabetes mellitus without complications; I10 Essential (primary) hypertension; E78.00 Pure hypercholesterolemia, unspecified; Z79.82 Long term (current) use of aspirin; Z90.49 Acquired absence of other specified parts of digestive tract; Z83.3 Family history of diabetes mellitus
CPT/HCPCS: 66984; 82962; J0171

== ENCOUNTER 2018-01-11 11:37 | Day surgery (SDC) | payer OTHER, MEDICARE ==
--- OUTSIDE RECORDS SUMMARY | 2018-01-11 11:43 | XMS REPORT | Continuity of Care Document ---
:1940 Author Organization Interface Problems Problem Status Onset Classification Date Comments Source Date Reported Encounter for 09/02/19 12/02/2017 [facility] screening 18 [facility] malignant neoplasm of breast Z12.31 - ENCNTR Active 08/25/19 [facility] SCREEN MAMMOGRAM 18 [place] FOR MA DIABETIC Active 08/16/19 Condition 08/15/2014 Medical RETINOPATHY, 15 Group BACKGROUND Diabetic Resolved 08/16/19 Problem 12/02/2017 Data Medical retinopathy<sup>6 15 migrated Group,HS </sup> from GE [facility] on 12/06/14. BODY MASS INDEX Active 02/15/20 Condition 08/15/2014 Medical 38.0-38.9, ADULT 14 Group POLYNEUROPATHY IN Active 02/15/20 Condition 08/15/2014 Medical DIABETES 14 Group DIABETIC Active 02/15/20 Condition 08/15/2014 Medical PERIPHERAL 14 Group NEUROPATHY Body mass index Resolved 02/15/20 Problem 12/02/2017 Data Medical 30+ - 14 migrated Group,[facility] obesity<sup>2</wiggins from GE [facility] p> [facility] on 10/28/14. Diabetic Active 02/15/20 Problem 12/02/2017 Data Medical peripheral 14 migrated Group,[facility] neuropathy<sup>4< from GE [facility] /sup> [facility] on 10/28/14. Diabetic Resolved 02/15/20 Problem 12/02/2017 Data Medical polyneuropathy<wiggins 14 migrated Group,[facility] p>5</sup> from [facility] on 10/28/14. DIABETES Active 08/25/19 Condition 08/15/2014 Medical MELLITUS, TYPE 14 Group II, WITH OPHTHALMIC COMPLICATIONS Diabetic Active 08/25/19 Problem 12/02/2017 Data Medical oculopathy 14 migrated Group,[facility] associated with from GE [facility] type 2 diabetes [facility] mellitus<sup>3</s on 10/28/14. up> MACULAR Active 08/21/19 Condition 08/24/2013 Medical DEGENERATION 13 Group DRY EYE SYNDROME Active 08/21/19 Condition 08/15/2014 Medical 13 Group PREVENTIVE HEALTH Active 08/21/19 Condition 08/15/2014 Medical CARE 13 Group EDEMA Active 08/21/19 Condition 08/15/2014 Medical 13 Group EPICONDYLITIS Inactive 08/21/19 Condition 08/15/2014 Medical 13 Group SENILE NUCLEAR Active 08/21/19 Condition 08/15/2014 Medical SCLEROSIS 13 Group Edema<sup>7</sup> Resolved 08/21/19 Problem 12/02/2017 Data Medical 13 migrated Group,[facility] from [employer] on 10/28/14. Tear film Resolved 08/21/19 Problem 12/02/2017 Data Medical insufficiency<sup 13 migrated Group,[facility] >11</sup> from [employer] on 10/28/14. LONG-TERM USE OF Active 01/08/20 Condition 08/15/2014 Medical OTHER MEDICATIONS 12 Group HYPERTENSION, Inactive 01/08/20 Condition 08/15/2014 Medical WHITE COAT 12 Group OBESITY Active 01/08/20 Condition 08/15/2014 Medical 12 Group Long-term drug Resolved 01/08/20 Problem 12/02/2017 Data Medical therapy<sup>9</wiggins 12 migrated Group,[facility] p> from [employer] on 10/28/14. Obesity<sup>10</s Resolved 01/08/20 Problem 12/02/2017 Data Medical up> 12 migrated Group,[facility] from [employer] on 10/28/14. DM Active Condition 08/15/2014 Medical Group HTN Active Condition 08/15/2014 Medical Group HYPERLIPIDEMIA Active Condition 08/15/2014 Medical Group VITAMIN D Active Condition 08/15/2014 Medical DEFICIENCY Group ANEMIA Inactive Condition 08/15/2014 Medical Group FH DIABETES - DM Inactive Condition 08/15/2014 Medical Group FH COLON CANCER Active Condition 08/15/2014 Medical Group Benign Active Problem 12/02/2017 Data Medical hypertension<sup> migrated Group,[facility] 1</sup> from [employer]'s on 10/28/14. Low serum HDL Active Problem 12/02/2017 Medical Group,[facility] Hyperlipidemia<wiggins Resolved Problem 12/02/2017 Data Medical p>8</sup> migrated Group,[facility] from [facility] on 10/28/14. Mixed Active Problem 12/02/2017 Medical hyperlipidemia Group,[facility] Vitamin D Resolved Problem 12/02/2017 Data Medical deficiency<sup>12 migrated Group,[facility] </sup> from [facility] [address] on 10/28/14. Medications Medication Details Route Status Patient Ordering Order Source Instructions Provider Date simvastatin 40 40 mg=1 tab, Active MH mg oral tablet PO, Bedtime, 018 Medical replaces 80 Group mg, # 90 tab, 1 Refill(s), Pharmacy: [facility] quinapril 40 mg 40 mg=1 tab, Active oral tablet PO, Daily, # 018 Medical 90 tab, 1 Group Refill(s), Pharmacy: [facility] Metoprolol See Active Succinate ER 50 Instructions 018 Medical mg oral tablet, , TAKE 1 Group extended release TABLET EVERY DAY, # 90 tab, 1 Refill(s), Pharmacy: [facility] Metformin 1,000 mg=2 Active hydrochloride tab, PO, 018 Medical 500 MG Oral BID, # 360 Group Tablet tab, 1 Refill(s), Pharmacy: [facility] Furosemide 20 MG 20 mg=1 tab, Active Oral Tablet PO, Daily, # 018 Medical 90 tab, 1 Group Refill(s), Pharmacy: [facility] doxazosin 8 mg See Active oral tablet Instructions 018 Medical , TAKE 1 Group TABLET EVERY DAY AT BEDTIME, # 90 tab, 1 Refill(s), Pharmacy: [facility] diclofenac 75 mg=1 tab, Active sodium 75 mg PO, BID, 0 018 Medical oral enteric Refill(s) Group coated, delayed-release tablet VITAMIN D 2000 1 daily Active UNIT CAPS 014 Medical Group METFORMIN HCL Take 2 Active 500 MG TABS tablets by 013 Medical [...] Group FUROSEMIDE 20 MG 1 daily Active MH TABS 013 Medical Group MULTIVITAMIN 1 gummie Active MH GUMMIES ADULT daily Medical CHEW Group FISH OIL 1200 MG 1 po daily Active MH CAPS 013 Medical Group QUINAPRIL HCL 20 1 PO daily Active MH MG TABS 013 Medical Group METOPROLOL 1 PO daily Active MH SUCCINATE 50 MG 013 Medical [id number] Group SIMVASTATIN 80 1 PO daily Active MH MG TABS 013 Medical Group ASPIRIN LOW DOSE 1 PO Daily Active MH 81 MG TABS 013 Medical Group PRESERVISION 2 PO daily Active MH AREDS CAPS 013 Medical Group RESTASIS 0.05 % use prn Active MH EMUL 013 Medical Group FUROSEMIDE 20 MG 1 daily Active MH TABS 013 Medical Group METOPROLOL 1 PO daily Active MH SUCCINATE 50 MG 013 Medical [id number] Group SIMVASTATIN 80 1 PO daily Active MH MG TABS 013 Medical Group RESTASIS 0.05 % use prn Active MH EMUL 013 Medical Group FUROSEMIDE 20 MG 1 daily Active MH TABS 013 Medical Group METOPROLOL 1 PO daily Active MH SUCCINATE 50 MG 013 Medical [id number] Group SIMVASTATIN 80 1 PO daily Active MH MG TABS 013 Medical Group MEDROL DOSE PACK use as No Longer MH 6 DAY dirrected Active 012 Medical Group VITAMIN D3 1000 1 PO daily No Longer MH UNIT TABS Active 012 Medical Group Allergies, Adverse Reactions, Alerts Substance Category Reaction Severity Reaction Status Date Comments Source type Reported CARVEDILOL Drug CARVEDILOL allergy Medical Group carvedilol< Assertion Drug Active Data [facility] sup>1</sup> allergy migrated [facility] from [employer] on 09/29/14. Originally documented as CARVEDILOL. dry mouth Immunizations Immunization Date Site Status Last Comments Source Given Updated influenza virus Right completed Cain Result Comment: Medical vaccine, 7 Deltoid NO ADVERSE Group,[facility] inactivated<sup> REACTION [facility] 1</sup> Women's pneumococcal Left completed Cain Result Comment: Medical 13-valent 7 Deltoid NO ADVERSE Group,[facility] vaccine<sup>3</s REACTION [facility] up> Women's tetanus-diphther Left completed Cain Result Comment: [facility] ia 7 Deltoid NO ADVERSE Group,[facility] toxoids<sup>4</s REACTION [facility] up> Women's influenza completed Medical immunization 3 Group (Flu Vax) has been administered Hx influenza completed GE Result Comment: Medical vaccine-unspecif 3 done. Migrated Group,[facility] ied<sup>6</sup> from OBS ; [facility] Data migrated Women's from [employer] on 07/03/2015.[07/30 Uncharted] Duplicate influenza virus completed GE Result Comment: Medical vaccine, 3 fluzone Group,[facility] inactivated<sup> preservative Victory 2</sup> free (>3 yrs.) Women's [[id number]]. Migrated from OBS ; Data migrated from [employer] on 07/03/2015. pneumococcal completed Medical immunization 3 Group administered pneumococcal Right completed GE Result Comment: [facility] 23-valent 3 Deltoid pneumovax-23. Group,[facility] vaccine<sup>7</s Migrated from Victory up> OBS VIS: Women's [birth year] given August 20, 2012. ; Data migrated from [employer] on 07/03/2015. influenza completed Medical immunization 2 [...] Group immunization for children, #1 tetanus-diphther completed Result Comment: Medical ia 4 td. Migrated Group,[facility] toxoids<sup>5</s from OBS ; [facility] up> [facility]. Results Order Name Results Value Reference Date Interpretation Comments Source Range Breast Breast Mammo 08/26 - [facility] Mammo Scrn Scrn - [place] DEVAN incl incl CAD MA CAD MA Read by: Emilie White MD Dictated Date/time: 08/31/17 12:38 BILATERAL DIGITAL SCREENING MAMMOGRAM WITH CAD: 08/26/2017 Electronically Signed by: Emilie White MD 08/31/17 12 :38 FINAL REPORT CLINICAL: /Screening. Current study was evaluated with a Computer Aided Detection (CAD) system. COMPARISON:Comparison is made to exam dated: 11/16/2006 mammogram - [facility]. And additional exams from [facility] with the most recent dated 11/28/2014. TECHNIQUE: [...] is recommended.(08/27/2018) This exam was interpreted at [id number] for [facility]. Emilie White M.D. sg/penrad:08/31/2017 12:38:41 Electrophysiologist(s): Ly Gonzalez, [facility] [place] [facility] letter sent: BI-RADS 1/2 Dense Mammogram BI-RADS: 2 Benign Chemistry SODIUM 140 mmol/L 136 - 142 08/15 Medical Group Chemistry POTASSIUM 3.7 mmol/L 3.3 - 5.0 08/15 Medical Group Chemistry BUN 15 mg/dL 8 - 20 08/15 Medical Group Chemistry CREATININE 0.70 mg/dL 0.46 - 08/15 1. Medical Group Chemistry CALCIUM 9.0 mg/dL 8.8 - 10.0 08/15 Medical Group Chemistry CHOLESTEROL 156 mg/dl 120 - 200 08/15 Medical Group Chemistry HDL 48 mg/dl 31 - 79 08/15 Medical Group Chemistry LDL 57 mg/dl 0 - 130 08/15 Medical Group Chemistry SGPT (ALT) 15 U/L 11 - 43 08/15 Medical Group Chemistry SGOT (AST) 16 U/L 10 - 08/15 Medical Group Chemistry HGBA1C 6.9 % [...] Medical Group Chemistry SGPT (ALT) 23 U/L - 02/14 Medical Group Chemistry SGOT (AST) 25 U/L - 02/14 Medical Group Chemistry MAGNESIUM 2.1 mg/dL 1.9 - 2.5 02/14 Medical Group Chemistry TSH 1.49 0.34 - 02/14 MH uIU/mL 5. Medical Group Chemistry SODIUM 141 mmol/L 136 - 142 08/24 Medical Group Chemistry POTASSIUM 3.7 mmol/L 3.3 - 5.0 08/24 Medical Group Chemistry ALBUMIN 4.1 g/dL 3.5 - 5.0 08/24 Medical Group Chemistry CALCIUM 9.2 mg/dL 8.8 - 10.0 08/24 Medical Group Chemistry CREATININE 0.74 mg/dL 0.46 - 08/24 1.20 Medical Group Chemistry BUN 12 mg/dL 8 - 20 08/24 Medical Group Chemistry ALK PHOS 44 [...] HCT 36.1 % 35.0 - 08/24 43.8 Medical Group Chemistry CHOLESTEROL 166 mg/dl 02/21 Medical Group Chemistry TRIGLYCERIDE 199 mg/dl 02/21 Medical Group Chemistry CHOLESTEROL 166 mg/dl 02/21 Medical Group Chemistry TRIGLYCERIDE 199 mg/dl 02/21 Medical Group Chemistry HDL 53 mg/dl 02/21 Medical Group Chemistry LDL 73 mg/dl 02/21 Medical Group Chemistry TSH 1.41 02/21 uIU/mL Medical Group Chemistry CHOLESTEROL 157 mg/dl 08/20 Medical Group Chemistry TRIGLYCERIDE 207 mg/dl 08/20 Medical Group Chemistry CHOLESTEROL 157 mg/dl 08/20 Medical Group Chemistry TRIGLYCERIDE 207 mg/dl 08/20 Medical Group Chemistry HDL 44 mg/dl 08/20 Medical Group Chemistry LDL 72 mg/dl 08/20 Medical Group Chemistry HGBA1C 7.4 % 08/20 Medical Group International [employer] PAP SMEAR Normal 05/11 Medical Group International Student Counselor PAP SMEAR Normal 05/11 Medical Group International Student Counselor PAP SMEAR Normal 05/11 Medical Group International Student Counselor PAP SMEAR Normal 05/11 Medical Group Chemistry CHOLESTEROL 167 mg/dl 01/07 Medical Group Chemistry TRIGLYCERIDE 271 mg/dl 01/07 Medical Group Chemistry CHOLESTEROL 167 mg/dl 01/07 Medical Group Chemistry TRIGLYCERIDE 271 mg/dl 01/07 Medical Group Chemistry HDL 46 mg/dl 01/07 Medical Group Chemistry LDL 67 mg/dl 01/07 Medical Group Chemistry HGBA1C 6.7 % 01/07 Medical Group Chemistry TSH 1.03 01/07 uIU/mL Medical Group Chemistry HGBA1C 6.1 % 01/07 Medical Group Chemistry HGBA1C 6.1 % 01/07 Medical Group Chemistry CHOLESTEROL 152 mg/dl 07/21 Medical Group Chemistry TRIGLYCERIDE 278 mg/dl 07/21 Medical Group Chemistry CHOLESTEROL 152 mg/dl 07/21 Medical Group Chemistry TRIGLYCERIDE 278 mg/dl 07/21 Medical Group Chemistry HDL 43 mg/dl 07/21 Medical Group Chemistry LDL 53 mg/dl 07/21 Medical Group Chemistry HGBA1C 6.1 % 07/21 Medical Group Chemistry CHOLESTEROL 132 mg/dl 01/10 Medical Group Chemistry TRIGLYCERIDE 148 mg/dl 01/10 Medical Group Chemistry CHOLESTEROL 132 mg/dl 01/10 Medical Group Chemistry TRIGLYCERIDE 148 mg/dl 01/10 Medical Group Chemistry HDL 39 mg/dl 01/10 Medical Group Chemistry LDL 63 mg/dl 01/10 Medical Group Chemistry HGBA1C 5.9 % 01/10 Medical Group Chemistry TSH 0.85 01/10 uIU/mL Medical Group Vital Signs Vital Sign Value Date Comments Source Systolic (mm Hg) 160 11/10/2017 Medical Group Diastolic (mm Hg) 90 11/10/2017 Medical Group Heart Rate 83 11/10/2017 Medical Group Temperature Oral (F) 98.1 F 11/10/2017 Medical Group BMI Calculated 36.19 11/10/2017 Medical Group Weight 84.773 11/10/2017 Medical Group Height 153.04 cm 11/10/2017 MH Medical Group Systolic (mm Hg) 182 11/10/2017 MH Medical Group Diastolic (mm Hg) 93 11/10/2017 MH Medical Group Systolic (mm Hg) 154 08/18/2017 MH Medical Group Diastolic (mm Hg) 88 08/18/2017 MH Medical Group Temperature Oral (F) 97.8 F 08/18/2017 MH Medical Group Weight 84.148 08/18/2017 MH Medical Group Heart Rate 78 08/18/2017 MH Medical Group Systolic (mm Hg) 174 08/18/2017 MH Medical Group Diastolic (mm Hg) 92 08/18/2017 MH Medical Group Weight 183.4 08/15/2014 MH Medical Group Temperature Oral (F) 97.6 F 08/15/2014 MH Medical Group Respitory Rate 16 08/15/2014 Medical Group Heart Rate 101 08/15/2014 MH Medical Group Systolic (mm Hg) 196 08/15/2014 MH Medical Group Diastolic (mm Hg) 127 08/15/2014 MH Medical Group Height 60 02/14/2014 MH Medical Group Weight 198.8 02/14/2014 MH Medical Group Temperature Oral (F) 97.5 F 02/14/2014 Medical Group Respitory Rate 20 02/14/2014 Medical Group Heart Rate 68 02/14/2014 MH Medical Group Systolic (mm Hg) 142 02/14/2014 MH Medical Group Diastolic (mm Hg) 88 02/14/2014 Medical Group Weight 199.8 08/24/2013 MH Medical Group Temperature Oral (F) 98.3 F 08/24/2013 Medical Group Heart Rate 60 08/24/2013 MH Medical Group Systolic (mm Hg) 138 08/24/2013 MH Medical Group Diastolic (mm Hg) 82 08/24/2013 Medical Group Respitory Rate 16 08/24/2013 Medical Group Weight 198.4 02/21/2013 Medical Group Temperature Oral (F) 97.1 F 02/21/2013 MH Medical Group Heart Rate 64 02/21/2013 Medical Group Respitory Rate 16 02/21/2013 MH Medical Group Systolic (mm Hg) 136 02/21/2013 MH Medical Group Diastolic (mm Hg) 84 02/21/2013 [...] Type Number For Provider Date Date Visit [facility] Lab Report [id number] Art 08/24 08/24 [facility] [address] [place], /2013 Medical Yuval GRACIA [facility] Lab Report [id number] Art 08/24 08/24 [place] [facility] 23[address], /2013 Yuval Sanford MD [facility] Practice [facility] Office [id number] Art 08/24 08/24 [place] Medical Visit 6980 [place], /2013 Yuval Sanford MD [facility] Lab Report [id number] Art 02/14 02/14 [place] 7830 [place], /2013 Yuval Sanford MD [facility] Office [id number] Art 08/15 08/15 [place] Medical Visit 3210 [place], /2014 Yuval Sanford MD [facility] Lab Report [id number] Art 08/15 08/15 [place] [facility] 8320 [place], /2014 Medical Claribel GRACIA [facility] Outpatient [id number] ART 02/15 [facility] [place] [facility] [id number] ART 08/20 [facility] [place] [facility] [id number] ART 02/18 [facility] [place] [facility] [id number] ART 08/19 [facility] [place] [facility] [id number] NORY 02/10 Active [facility] [place] Outpatient [id number] ART 02/17 Active [facility] [place] Outpatient [id number] ART 08/[address] [facility] Outpatient [id number] Nory 08/18 08/19 [facility] Claribel [facility] Outpt Diag [id number] Brittney 08/26 08/27 [facility] Outpatient Services [facility] [id number] JERECIA 11/10 [facility] Outpatient [id number] Jerecia 11/10 11/11 [facility] [id number] JERECIA 02/23 [facility] [place] Procedures Procedure Code Date Perfomer Comments Source diabetic foot check [id number] yes Medical 5 Group diabetic foot check [id number] yes Medical 4 Group mammogram 08623 L. Digital Medical 4 diagnostic Group mammogram - [facility] diabetic foot check [id number] yes Medical 4 Group mammogram 64258 Done Medical 4 Group diabetic foot check [id number] yes Medical 3 Group diabetic foot check [id number] yes Medical 3 Group mammogram 25874 Done Medical 2 Group vaginal Pap smear 72959 Normal Medical results 2 Group bone density 4002.65 Normal Medical 2 Group Laser eye [id number] Bilateral Medical surgery<sup>1</sup> 2 Group Laser eye [id number] Bilateral [facility] surgery<sup>1</sup> 2 Women's mammogram 53860 Done Medical 1 Group colonoscopy 82287 divorticulosis; Medical 1 repeat in 10 Group years mammogram 06978 Done Medical 0 Group bone density 4002.65 Done Medical 4 Group bone density 4002.65 Done Medical 4 Group Arthroscopy of [id number] Left - Medial Medical knee<sup>2</sup> Meniscus Tear Group Biopsy of [id number] Left - Medical breast<sup>3</sup> Stereotactic Group Cholecystectomy [id number] Medical Group Arthroscopy of [id number] Left - Medial [facility] Victory knee<sup>2</sup> Meniscus Tear Women's Biopsy of [id number] Left - [facility] Victor breast<sup>3</sup> Stereotactic Women's Cholecystectomy [id number] [facility] Women's
--- OUTSIDE RECORDS SUMMARY | 2018-01-11 11:43 | XMS REPORT | Continuity of Care Document ---
:1940 Author Organization [facility] Care Team Providers Name Role Phone MD [place], Art Unavailable Unavailable Insurance Providers Payer name Policy type / Policy ID Covered alliance party ID Policy [place] Coverage type AARP COB SECONDARY AARP COB SECONDARY MCR MEDICARE PRIMARY [place]: [employer]OV[employer] AARP HEALTHCARE OPTIONS (MEDICARE SUPPLEMENT MEDIC[place] [employer] AARP HEALTHCARE OPTIONS (MEDICARE SUPPLEMENT Encounters Encounter Performer Location Date Lab Report Art MD Glenn [facility] Aug 24, 2013 Allergies, Adverse Reactions, Alerts [...] 1 PO daily Aug 20, 2012 Active [id number] SIMVASTATIN 80 MG TABS 1 PO daily [...]
--- OUTSIDE RECORDS SUMMARY | 2018-01-11 11:43 | XMS REPORT | Continuity of Care Document ---
:1940 Author Organization [facility] Care Team Providers Name Role Phone MD [place], Art Unavailable Unavailable Insurance Providers Payer name Policy type / Policy ID Covered republican ID Policy [place] Coverage type AARP COB SECONDARY AARP COB SECONDARY MCR MEDICARE [place]IMARY [place]: [place]OVITAS [employer] AARP HEALTHCARE OPTIONS (MEDICARE SUPPLEMENT MEDICARE [place]: [employer] AARP HEALTHCARE OPTIONS (MEDICARE SUPPLEMENT Encounters Encounter Performer Location Date Office Visit Fernandez Elizabeth MD [facility] Jul Practice Allergies, Adverse Reactions, Alerts Type [...] 1 PO daily Aug 20, 2012 Active [id number] SIMVASTATIN 80 MG TABS 1 PO daily [...]
--- OUTSIDE RECORDS SUMMARY | 2018-01-11 11:43 | XMS REPORT | Continuity of Care Document ---
:1940 Author Organization [facility] Care Team Providers Name Role Phone MD [place], Art Unavailable Unavailable Insurance Providers Payer name Policy type / Policy ID Covered democrat ID Policy [place] Coverage type AARP COB SECONDARY AARP COB SECONDARY MCR MEDICARE PRIMARY MED[place]: [place] [employer] AARP HEALTHCARE OPTIONS (MEDICARE SUPPLEMENT MEDICARE [place]: [employer] AARP HEALTHCARE OPTIONS (MEDICARE SUPPLEMENT Encounters Encounter Performer Location Date Lab Report Art MD Glenn [facility] Aug 24, 2013 Practice Allergies, Adverse Reactions, [...] 1 PO daily Aug 20, 2012 Active [id number] SIMVASTATIN 80 MG TABS 1 PO daily [...] Aug 24, sodium, serum SODIUM 141 mmol/L [phone] Aug 24, potassium, serum POTASSIUM 3.7 mmol/L [...] Aug 24, cholesterol, serum CHOLESTEROL 152 mg/dl [phone] Aug 24, HDL cholesterol, HDL 46 mg/dl 31-79 2013Aug 24, hemoglobin A1C, HGBA1C 6.4 % 3.0-6.0 High 2014 blood, as % of total hemoglobin May 11, vaginal Pap smear PAP SMEAR Normal 2011 results null
--- OUTSIDE RECORDS SUMMARY | 2018-01-11 11:44 | XMS REPORT | Continuity of Care Document ---
:1940 Author Organization [facility] Care Team Providers Name Role Phone MD [place], Art Unavailable Unavailable Insurance Providers Payer name Policy type / Policy ID Covered alliance party ID Policy [place] Coverage type AARP COB SECONDARY AARP COB SECONDARY MCR MEDICARE PRIMARY MEDICARE [place]: [employer] AARP HEALTHCARE OPTIONS (MEDICARE SUPPLEMENT MEDICARE [place]: [employer] AARP HEALTHCARE OPTIONS (MEDICARE SUPPLEMENT Encounters Encounter Performer Location Date Office Visit Fernandez Elizabeth MD [facility] Jul Practice Allergies, Adverse Reactions, Alerts [...] 2014 mammogram L. Digital diagnostic mammogram - [facility] Feb 14, 2014 smoking status [...] 1 PO daily Aug 20, 2012 Active [id number] SIMVASTATIN 80 MG TABS 1 PO daily [...] Aug 24, sodium, serum SODIUM 141 mmol/L [phone] Aug 24, potassium, serum POTASSIUM 3.7 mmol/L [...] Aug 24, cholesterol, serum CHOLESTEROL 152 mg/dl [phone] Aug 24, HDL cholesterol, HDL 46 mg/dl [...] 2013Feb 14, cholesterol, serum CHOLESTEROL 152 mg/dl [phone] Feb 14, HDL cholesterol, HDL 48 mg/dl [...] Aug 15, sodium, serum SODIUM 140 mmol/L [phone] Aug 15, potassium, serum POTASSIUM 3.7 mmol/L 3.3-5.0 2014Aug 15, urea nitrogen, blood BUN 15 mg/dL 8-20 2014Aug 15, creatinine, serum CREATININE 0.70 mg/dL 0.46-1.20 2014Aug 15, calcium, serum CALCIUM 9.0 mg/dL 8.8-10.0 2014Aug 15, cholesterol, serum CHOLESTEROL 156 mg/dl [phone] Aug 15, HDL cholesterol, HDL 48 mg/dl [...]
--- OUTSIDE RECORDS SUMMARY | 2018-01-11 11:44 | XMS REPORT | Continuity of Care Document ---
:1940 Author Organization [facility] Care Team Providers Name Role Phone MD Glenn, Art Unavailable Unavailable Insurance Providers Payer name Policy type / Policy ID Covered alliance party ID Policy [place] Coverage type AARP COB SECONDARY AARP COB SECONDARY MCR MEDICARE PRIMARY [place] [employer] AARP HEALTHCARE OPTIONS (MEDICARE SUPPLEMENT [place] [employer] AARP HEALTHCARE OPTIONS (MEDICARE SUPPLEMENT Encounters Encounter Performer Location Date Lab Report Art MD Glenn [facility] Feb 14, 2014 Practice Allergies, Adverse [...] 2014 mammogram L. Digital diagnostic mammogram - [facility] Feb 14, 2014 smoking status [...] 1 PO daily Aug 20, 2012 Active [id number] SIMVASTATIN 80 MG TABS 1 PO daily [...] Aug 24, sodium, serum SODIUM 141 mmol/L [phone] Aug 24, potassium, serum POTASSIUM 3.7 mmol/L [...] Aug 24, cholesterol, serum CHOLESTEROL 152 mg/dl [phone] Aug 24, HDL cholesterol, HDL 46 mg/dl [...] 2013Feb 14, cholesterol, serum CHOLESTEROL 152 mg/dl [phone] Feb 14, HDL cholesterol, HDL 48 mg/dl [...]
--- OUTSIDE RECORDS SUMMARY | 2018-01-11 11:44 | XMS REPORT | Continuity of Care Document ---
:1940 Author Organization [facility] Care Team Providers Name Role Phone MD Glenn, Art Unavailable Unavailable Insurance Providers Payer name Policy type / Policy ID Covered republican ID Policy [place] Coverage type AARP COB SECONDARY AARP COB SECONDARY MCR MEDICARE PRIMARY [place]: [place] [facility] [employer] AARP HEALTHCARE OPTIONS (MEDICARE SUPPLEMENT [facility]ARE [place] AARP HEALTHCARE OPTIONS (MEDICARE SUPPLEMENT Encounters Encounter Performer Location Date Lab Report Art MD Glenn [facility] Aug 15, 2014 Practice Allergies, Adverse Reactions, [...] 2014 mammogram L. Digital diagnostic mammogram - [facility] Feb 14, 2014 smoking status [...] 1 PO daily Aug 20, 2012 Active [id number] SIMVASTATIN 80 MG TABS 1 PO daily [...] Aug 24, sodium, serum SODIUM 141 mmol/L [phone] Aug 24, potassium, serum POTASSIUM 3.7 mmol/L [...] Aug 24, cholesterol, serum CHOLESTEROL 152 mg/dl [phone] Aug 24, HDL cholesterol, HDL 46 mg/dl [...] 2013Feb 14, cholesterol, serum CHOLESTEROL 152 mg/dl [phone] Feb 14, HDL cholesterol, HDL 48 mg/dl [...] Aug 15, sodium, serum SODIUM 140 mmol/L [phone] Aug 15, potassium, serum POTASSIUM 3.7 mmol/L 3.3-5.0 2014Aug 15, urea nitrogen, blood BUN 15 mg/dL 8-20 2014Aug 15, creatinine, serum CREATININE 0.70 mg/dL 0.46-1.20 2014Aug 15, calcium, serum CALCIUM 9.0 mg/dL 8.8-10.0 2014Aug 15, cholesterol, serum CHOLESTEROL 156 mg/dl [phone] Aug 15, HDL cholesterol, HDL 48 mg/dl [...]
--- OUTSIDE RECORDS SUMMARY | 2018-01-11 11:44 | XMS REPORT | Summary of Care ---
:1940 Author Organization [facility] Outpatient Imaging - [facility] Address [address] [place] [address]- Encounter HQ Katherine_tosha(FIN) [id number] Date(s): 08/26/17 - 08/26/17 [facility] Outpatient Imaging - [facility] 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 dry mouth Medications No data available for this section Results No data available for this section Immunizations Given and Recorded Vaccine Date Status Refusal Reason influenza virus vaccine, inactivated1 02/17/17 Given influenza virus vaccine, inactivated2 02/21/13 Given pneumococcal 13-valent vaccine3 02/17/17 Given tetanus-diphtheria toxoids4 02/17/17 Given tetanus-diphtheria toxoids5 11/28/03 Given Hx influenza vaccine-unspecified6 02/21/13 Given pneumococcal 23-valent vaccine7 08/20/12 Given 1Result Comment: NO ADVERSE [id number] Comment: fluzone preservative free ( >3 yrs.) [[id number]]. Migrated from OBS ; Data migratedfrom [employer] on 07/03/2015.3Result Comment: NO ADVERSE [id number] Comment: NO ADVERSE [id number] Comment: td. Migrated from OBS ; Data migrated from [employer] on 07/03/2015.6Result Comment: done. Migrated from OBS ; Data migrated from [employer] on 07/03/2015.[08/15/2015 Uncharted] [id number] Comment: pneumovax-23. Migrated from OBS VIS: 12-27-96 given August 20, 2012. ; Data migrated from [employer] on 07/03/2015. Procedures Procedure Date Related Diagnosis Body Site Status Laser eye surgery1 09/2011 Completed Arthroscopy of knee2 Completed Biopsy of breast3 Completed Cholecystectomy Completed [id number] - Medial Meniscus [id number] - Stereotactic Social History Social History Type Response Smoking Status Never smoker; Exposure to Tobacco Smoke None; Cigarette Smoking Last 365 Days No; Reg Smoking Cessation Counseling No entered on: 11/10/17 Assessment and Plan No data available for this section
[2018-01-11] MEDS ORDERED: NA CHLORIDE 0.9% 500 ML ONE (12:09)
[2018-01-11] MEDS ORDERED: BUPIVACAINE 0.25% PF 10 ML VIAL ONE (12:10)
[2018-01-11] MEDS ORDERED: LIDOCAINE 2% MPF 5 ML VIAL ONE (12:10)
[2018-01-11] MEDS ORDERED: CYCLOPENTOLATE 1% OPTH 2 ML ONE (12:10)
[2018-01-11] MEDS ORDERED: TETRACAINE HCL 0.5% 2ML OPTH ONE (12:10)
[2018-01-11] MEDS ORDERED: PHENYLEPHRINE 10% OPTH 5ML ONE (12:10)
[2018-01-11] MEDS ORDERED: BALANCED SALT IRRIG PLAIN 500 ML BTL IRR ONE (12:13)
[2018-01-11] MEDS ORDERED: NS 0.9% VIAL 10 ML ONE (12:13)
[2018-01-11] MEDS ORDERED: DUOVISC 1 KIT OPTH ONE (12:14)
[2018-01-11] MEDS ORDERED: MOXIFLOXACIN HCL 10 DROPS/ML **OR USE OPTH ONE (12:14)
[2018-01-11] MEDS ORDERED: EPINEPHRINE/PF 1 MG/ML AMP ONE (12:15)
[2018-01-11] MEDS ORDERED: CYCLOPENTOLATE 1% OPTH 2 ML OPTH ONE ×2 (12:35→12:40)
[2018-01-11] MEDS ORDERED: PHENYLEPHRINE 10% OPTH 5ML OPTH ONE ×2 (12:35→12:40)
[2018-01-11] MEDS ORDERED: LIDOCAINE 1% MPF 5 ML VIAL ONE (13:49)
[2018-01-11] MEDS ORDERED: PROPOFOL 200 MG/20 ML VIAL IV ONE (13:49)
--- NOTE | 2018-01-11 14:34 | P.BOP ---
Preoperative diagnosis: Nuclear sclerotic and cortical cataract OD Postoperative diagnosis: Same Primary procedure: Phacoemulsification with IOL OD Estimated blood loss: None Anesthesia: Local (Subtenon's infusion with anesthesia for cataract surgery) Complications: None Implants: [id number] +23.5 Transferred to: Other (Day surgery) Condition: Good
--- NOTE | 2018-01-12 01:42 | OP ---
Date of Procedure: 01/11/2018 Surgeon: Michelle Carrillo MD Anesthesiologist: 1. Beth Barbosa CRNA. 2. Fidel Jaramillo M.D. Preoperative Diagnosis: Nuclear sclerotic cataract and cortical cataract OD (right eye). Operation Performed: Phacoemulsification with intraocular lens implant, right eye. Anesthesia: Per cataract surgery. Complications: None. Description Of Procedure: In day surgery, the patient was prepped with Betadine and draped. A conju nctival incision was made in the inferior nasal quadrant with Chao scissors. A sub-Tenon block c onsisting of a 1:1 mixture of 2% Xylocaine and 0.25% bupivacaine was placed through the conjunctival incision with a blunt cannula. A Honan balloon was placed over the eye and the patient was transferr ed to the operating room. In the operating room the patient was prepped and draped in the usual sterile fashion for ophthalmic surgery. A lid speculum was placed in the right eye. Two paracentesis sites were made superiorly an d inferiorly in the limbal cornea. Viscoat was placed in the anterior chamber and a crescent blade w as used to make a corneal groove and tunnel, and a keratome was used to enter the anterior chamber. Provisc was placed in the anterior chamber and a 360 degree capsulotomy was performed with a cystitom e. The lens was hydrodissected with BSS and rotated freely. The lens was removed with a stop and ch op technique. A 4.30 phaco CDE was used to remove the lens. Residual cortex was removed with the ir rigation and aspiration. Provisc was placed in the capsular bag. A ZCB00 +23.5 diopter lens was osmany carla in the capsular bag without complications. Irrigation and aspiration was used to remove residual viscoelastic. The paracentesis sites were hydrated with BSS. The wound and paracentesis sites were inspected and found to be watertight. Vigamox 0.07 cc was placed intracamerally at the end of the p rocedure. The eye was irrigated with balanced salt solution. The eye was patched with a soft cotton patch and Johnson metal shield. The patient was returned to day surgery in good condition. Comments: Discharge Instructions: Ms. Tay is discharged to home in good condition and is to follow up with Dr Kathie Carrillo in the morning. ALF[facility] Voice ID: [id number] Report ID: [id number]
== END 2018-01-11 14:57 | disposition home or self-care (01) ==
LOC: OR 11:37
PROVIDERS: ATTEND Ophthalmology Retina Specialist
PROC: 08RJ3JZ Replacement of Right Lens with Synthetic Substitute, Percutaneous Approach (ICD-10-PCS; principal; 2018-01-11 12:00)
DX: H25.11 Age-related nuclear cataract, right eye (principal); H25.011 Cortical age-related cataract, right eye; I10 Essential (primary) hypertension; E78.00 Pure hypercholesterolemia, unspecified
CPT/HCPCS: 66984; 82962; J0171